=== PATIENT | female | born 1990 | race Caucasian/White ===

== ENCOUNTER 2020-02-09 21:25 | Emergency (ER) | payer MEDICAID, SELFPAY ==
[2020-02-09 21:31] VITALS: BP 137/85; PULSE 114; RESP 18; TEMP 36.8
--- NOTE | 2020-02-09 21:48 | W.ED.GENAD ---
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 Return to ED sooner if any worsening or concerns. Increase oral fluids. Please take Tylenol or Ibuprofen with food every 4-6 hours as needed for pain and swelling. Follow-up with women's wellness return if bleeding more than 1 pad an hour, increased dizziness or lightheadedness or any concerns. Practice pelvic rest until follow-up with LOCK TENDER CHIEF OPERATOR. You were placed on a follow-up list for care management for women's wellness referral to be seen in 3 to 5 days. Referrals: Simone FRANKLIN,Tami [NURSE PRACTITIONER] - 5 days () Medical Decision Making 29-year-old female presents with abnormal vaginal bleeding x12 days. Patient states that her normal menstrual period started 2 weeks late and then began bleeding vaginally which has been longer and heavier than normal. She was seen 3 days ago at [facility] diagnosed with UTI prescribed cephalexin 500 mg twice a day. Patient states that she has been in contact with women's wellness but is waiting for medical records to transfer over before they will give her an appointment. CBC and CMP ordered, she does have leukocytosis with a WBC count of 12, upon review of her previous lab work this does seem to be her baseline. Urine shows no leukocytes, no nitrites 5-10 WBCs rare epithelial cells and is going to be sent for a culture which is pending at this time. Patient's urine test is negative. We will put in a referral for women's wellness discuss strict return instructions with patient, verbalized understanding. Ultrasound is not available to abdomen pelvis ultrasound. This time I feel patient is stable to be discharged home with close follow-up with women's wellness and/or PCP, placed on care management list to establish PCP and to aid in referral within 3 to 5 days. Differential diagnosis includes miscarriage, abnormal vaginal bleeding, ectopic , pyelonephritis, UTI, HPI General Mode of arrival: ambulatory. Date/Time Provider Initiated Documentation: 02/09/20 21:30. Limitations to Documentation: no limitations. Information obtained by: patient. HPI Narrative: 29-year-old female presents with a chief complaint of abnormal vaginal bleeding. Patient states that she has been vaginally bleeding x12 days. She does endorse passing clots and today has been less than 1 pad an hour. She was seen at [facility] today and told that she had a UTI, she states that her last normal menstrual period was approximately 2 weeks late. She does have a history of tubal ligation. She is 2 para 2. She denies dysuria, it is associated with lower back pain and lower pelvic pain. No fever. 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 HEENT: Denies trauma, headaches, blurry vision, nasal discharge, sore throat, trouble swallowing. Chest: Denies chest pain, palpitations, irregular rhythm, hypertension. Respiratory: Denies Shortness of breath, cough, hemoptysis. GI: Denies nausea, vomiting, diarrhea, constipation. Positive suprapubic pelvic pain, bilateral lower back pain. : Denies dysuria, hematuria, flank pain, rectal bleeding. Positive vaginal bleeding. Neuro: Denies dizziness, blurry vision, weakness, syncope, headache or facial numbness. Hematologic: Denies easy bruising, intolerance to heat or cold, hair loss. [facility] Social History Smoking/Tobacco Use Status: Current every day Tobacco Type: cigarettes Alcohol Intake: current Alcohol Intake frequency: holidays/special occasions only Drug use: Never Substance use type: does not use Do you feel safe at home: Yes Do you feel safe in your relationship?: Yes Exam Narrative Exam Narrative: Constitutional: Alert and oriented x3. Appears stated age. Normal body habitus. Head: Normocephalic, no trauma. Eyes: Pupils PERRLA, Red reflex noted, EOM's intact. Eyelids symmetrical without lesions, discharge, or swelling. ENT: Bilateral TM's WNL, External ear normal to inspection, no mastoid TTP, swelling, or erythema, Nasal turbinates WNL, no nasal discharge. Normal dentition, Posterior pharynx WNL, no exudate. Chest: RRR, Normal S1, S2, distal pulses intact. Resp: Lungs clear to auscultation bilaterally, no wheezes, rales, or rhonchi. Abdomen: Bilateral suprapubic lower abdominal pain. Soft, nondistended normal active bowel sounds all 4 quadrants. Musculoskeletal: Normal gait, 5/5 strength to all four extremities. Skin: No suspicious rashes or lesions. Capillary refill less than 2 sec. Neurologic: Cranial nerves II-XII intact. Alert and oriented x 3. DTR's intact. Hematologic/Lymphatic: No ecchymosis, no lymphadenopathy. Course Vital Signs Vital signs: Vital Signs Temperature 36.8 C 02/09/20 21:31 Pulse 114 H 02/09/20 21:31 Respiratory Rate 18 02/09/20 21:31 Blood Pressure 137/85 02/09/20 21:31 Temperature 36.8 C 02/09/20 21:31 Temperature Source Temporal Artery Scan 02/09/20 21:31 Pulse 114 H 02/09/20 21:31 Respiratory Rate 18 02/09/20 21:31 Respiratory Effort Non-Labored 02/09/20 21:31 Blood Pressure 137/85 02/09/20 21:31 Blood Pressure Position Sitting 02/09/20 21:31 Pain Level 2 02/09/20 21:31
[2020-02-09 21:52] LABS: Bilirubin Small (Negative); Blood Large (Negative); Clarity Cloudy (Clear); Glucose Negative (Negative); Ketones Negative (Negative); Leukocyte Esterase Negative (Negative); Nitrite Negative (Negative); Specific Gravity >= 1.030 (1.005-1.025); pH 5.5 (5-8)
[2020-02-09 22:06] LABS: Abs Immature Grans 0.06 k/cumm (0.0-0.09); Absolute Eosinophil Count 0.35 k/cumm (0.0-0.7); Absolute Lymphocyte Count 3.87 k/cumm (1.2-3.4); Absolute Neutrophil Count 7.28 k/cumm (1.2-6.7); Basophils % 0.2; Eosinophils % 2.8; HCT 38.7 % (36.0-46.0); HGB 13.9 g/dL (12.0-15.5); Immature Grans % 0.5 %; Mean Corp. HGB Concentration 35.9 g/dL (32.0-36.0); Mean Corpuscular Hemoglobin 30.5 pg (27.0-33.0); Mean Corpuscular Volume 84.9 fL (80-95); Mean Platelet Volume 10.4 fL (8.0-11.0); Monocytes % 7.1; Neutrophils % 58.4; Platelet Count 280 x1000/uL (130-400); RBC 4.56 m/cumm (4.00-5.20); RBC Distribution Width 12.9 % (11.7-14.6); White Blood Cell Count 12.47 k/cumm (4.4-10.8)
[2020-02-09 22:21] LABS: ALT 42 U/L (14-59); AST 25 U/L (15-37); Alkaline Phosphatase 80 U/L (46-116); Anion Gap 7.1 mmol/L (3-11); BUN 14 mg/dL (7-18); Bilirubin, Total 0.3 mg/dL (0.2-1.0); CO2 27.9 mmol/L (21.0-32.0); CREATININE 0.83 mg/dL (0.55-1.02); Calcium 8.6 mg/dL (8.5-10.1); Chloride 103 mmol/L (98-107); Potassium 3.8 mmol/L (3.5-5.1); Sodium 138 mmol/L (136-145); Total Protein 7.6 g/dL (6.4-8.2)
[2020-02-09 22:22] LABS: Absolute Basophil Count 0.02 k/cumm (0.0-0.2); Absolute Monocyte Count 0.89 k/cumm (0.11-0.7)
[2020-02-09 22:26] LABS: Glucose 116 mg/dL (74-106)
[2020-02-09 22:29] LABS: Bacteria Negative HPF (Negative); Crystals Negative HPF (Negative); Epithelial Cells Rare HPF (Negative); Other Cells Negative (Negative); RBC >50 HPF (0-2)
[2020-02-09 22:30] LABS: C & S Indicated? Yes; Casts Negative LPF (Negative); Mucus Moderate (Negative)
[2020-02-09 23:00] VITALS: BP 115/62; PULSE 89; RESP 16; O2SAT 95
--- NOTE | 2020-02-09 23:26 | NUR.NOTE ---
REFERRED TO CARE MANAGEMENT TO ESTABLISH PCP. AND [facility] WITH[facility] THREE TO FIVE DAYS. Nursing Note:
== END 2020-02-09 23:07 | disposition home or self-care (01) ==
PROVIDERS: Nurse Practitioner Family; Emergency Provider Registered Nurse Emergency
DX: N92.0 Excessive and frequent menstruation with regular cycle (principal); M54.5 Low back pain; R10.2 Pelvic and perineal pain
CPT/HCPCS: 36415; 51701; 80053; 81025; 99283; 81003; 81015; 85025; 87086

== ENCOUNTER 2020-02-16 01:50 | Outpatient (CLI) | payer MEDICAID, SELFPAY ==
--- NOTE | 2020-02-16 13:00 | DI.US_ITS ---
EXAM: US PELVIS TRANSVAGINAL CLINICAL HISTORY: dysfunctional uterine bleeding, r10.2,pelvic pain, n93.8 TECHNIQUE: Ultrasound performed using standard protocol. COMPARISON: No exams were available for comparison FINDINGS: Pelvic ultrasound was performed transabdominally and transvaginally. Please see the accompanying zee a sheet for measurements of the pelvic structures. The uterus is normal in appearance with unremarkable myometrial echogenicity, endometrial stripe is 8 millimeters in thickness and appears homogeneous. The ovaries have a normal follicular appearance. Limited scanning of the kidneys is unremarkable. No free fluid identified in the cul-de-sac. IMPRESSION: Normal pelvic ultrasound DATA REPOSITORY:
== END 2020-02-16 02:10 ==
PROVIDERS: Visit Provider Obstetrics & Gynecology
DX: R10.2 Pelvic and perineal pain (principal); N93.8 Other specified abnormal uterine and vaginal bleeding
CPT/HCPCS: 76830; 76856

== ENCOUNTER 2020-12-04 14:37 | Outpatient (REF) | payer MEDICAID, SELFPAY ==
[2020-12-05 15:15] LABS: COVID-19 RT-PCR UVMMC Result Negative (Negative)
== END 2020-12-04 14:38 | disposition home or self-care (01) ==
LOC: NCHCN 14:37
PROVIDERS: PCP Internal Medicine; Visit Provider Internal Medicine
DX: Z20.822 Contact with and (suspected) exposure to COVID-19 (principal)
CPT/HCPCS: U0003

== ENCOUNTER 2022-03-08 08:23 | Emergency (ER) | payer MEDICAID, SELFPAY ==
[2022-03-08 08:27] VITALS: BP 119/77; PULSE 75; RESP 16; TEMP 36.6; O2SAT 98
--- OUTSIDE RECORDS SUMMARY | 2022-03-08 08:34 | XMS_ITS | Encounter Summary ---
:1990 Author Organization [facility] Address [address] [place] [address] Care Team Providers Name Role Phone Unavailable Primary Care Provider Unavailable Encounter Details Date Type Department Care Team Description 07/15/2011 Hospital Encounter [facility] - Mary Marin NP [id number] [place] [phone] (Wo rk) Social History Tobacco Use Types Packs/Day Years Used Date Never Assessed Sex Assigned at Date Recorded Not on file documented as of this encounter Discharge Disposition Disposition Code Departure Means Destination Home or Self Care documented in this encounter Plan of Treatment Not on filedocumented as of this encounter Visit Diagnoses Not on filedocumented in this encounter
--- OUTSIDE RECORDS SUMMARY | 2022-03-08 08:34 | XMS_ITS | Encounter Summary ---
:1990 Author Organization [facility] Address [address] [place] [address] Care Team Providers Name Role Phone Unknown, Provider Primary Care Provider Encounter Details Date Type Department Care Team Description 12/04/2020 Lab Requisition [facility] Outr Resulting Lab, Pathology & Laboratory Provider [facility] [address] [place] [address] Social History Tobacco Use Types Packs/Day Years Used Date Never Assessed Sex Assigned at Date Recorded Not on file documented as of this encounter Plan of Treatment Not on filedocumented as of this encounter Procedures Procedure Name Priority Date/Time Associated Diagnosis Comme nts COVID-19 TEST [facility] Today 12/04/2020 9:00 EDT LAB PCR COVID-19 TESTING Routine 12/04/2020 9:00 EDT Resu lts for this procedure are i n the results section. documented in this encounter Results COVID-19 TEST [facility] PCR (12/04/2020 9:00 EDT) Specimen Swab - Entire nasopharynx (body structur e) Performing Organization Address City/State/ZIP Code Phon e Number [facility] [address] [place] [address] SERVICES COVID-19 TESTING (12/04/2020 9:00 EDT) COVID-19 rt-PCR Negative Negative [facility] Result Comment: [facility] This test has not been FDA c leared or approved. This test has been authorized by FDA under an EUA for use by authorized laboratories. This test has been authorized only for detection of nucleic acid fro SERVICES m 2019-nCoV, not for any oth er viruses or pathogens. This test is only authorized for the duration of the declaration that circumstances exist justifying the authorization of emergency use of in vitro d iagnostic tests for detectio n and/or diagnosis of 2019-nCoV under section 564(b)(1) of Act, 21 U.S.C ?? 360bbb-3(b) (1), unless the authorization is terminated or revoked sooner. Negative results do not prec lude 2019-nCoV infection and should not be used as the sole basis for treatment or other patient management decisions. Negative results must be combined with clinical observa tions, patient history, and epidemiological informatio n. This test was developed and its performance characteristics determined by [facility]. It has not been cleared or approved by the US Food and Drug Administration. FDA does not require this test to go through premarket FDA review. This t est is used for clinical purposes. It should not be regarded as investigational or for research. This laboratory is certified under the Clinical Laboratory Improvement Amendm ents (CLIA) as qualified to perform high complexity clinical laboratory testing. This test is based on the CD C COVID-19 Emergency Use Authorization (EUA) assay, with minor modification as defined by the FDA Performed on the [employer] RT-PCR System. Performing Lab [facility] Lab [facility] SERVICES Specimen Swab Performing Organization Address City/State/ZIP Code Phon e Number [facility] [address] [place] [address] SERVICES documented in this encounter Visit Diagnoses Not on filedocumented in this encounter Care Teams Grinder Hardboard Relationship Specialty Start Date End Date Unknown, Provider, PCP - General 08/25/13 documented as of this encounter
--- OUTSIDE RECORDS SUMMARY | 2022-03-08 08:34 | XMS_ITS | Encounter Summary ---
:1990 Author Organization [facility] Address [address] [place] [address] Care Team Providers Name Role Phone Saniya Hadring SAFETY SECURITY OFFICER Primary Care Provider [phone] Encounter Details Date Type Department Care Team Description 08/24/2013 Hospital Encounter [facility]- Shanti Unknown, Provider, [facility] [address] [place] [address] [place] [address] (Work) [phone] Social History Tobacco Use Types Packs/Day Years Used Date Never Assessed Sex Assigned at Date Recorded Not on file documented as of this encounter Discharge Disposition Disposition Code Departure Means Destination Home or Self Alf documented in this encounter Plan of Treatment Not on filedocumented as of this encounter Visit Diagnoses Not on filedocumented in this encounter Care Teams Tea Tree Farmer Relationship Specialty Start Date End Date Saniya Harding NP PCP - General 07/18/11 08/24/[address] [place] [phone] documented as of this encounter
--- OUTSIDE RECORDS SUMMARY | 2022-03-08 08:34 | XMS_ITS | Encounter Summary ---
:1990 Author Organization [facility] Address [address] [place] [address] Care Team Providers Name Role Phone Unknown, Provider Primary Care Provider Encounter Details Date Type Department Care Team Description 07/15/2011 Results Only [facility] Saniya Salguero, Laboratory Services - RN SPINE [address] [phone] (Wo rk) Social History Tobacco Use Types Packs/Day Years Used Date Never Assessed Sex Assigned at Date Recorded Not on file documented as of this encounter Plan of Treatment Not on filedocumented as of this encounter Procedures Procedure Name Priority Date/Time Associated Diagnosis Comme [facility] SURGICAL PATHOLOGY Routine 07/15/2011 0:00 EDT Re sults for this procedure are i n the results section. documented in this encounter Results SURGICAL PATHOLOGY (07/15/2011 0:00 EDT) Pathology SURGICAL PATHOLOGY REPORT CARYN JEROME Report: Reports generated via electronic interface contain [place] ginal data; LAB however they are lacking the format of the original re port. Caution should be taken when reading/interpreting unfo rmatted reports. Name: ? ANALISA GOLDSTEIN ? Accession #: ? [id number] ? : ? 1990 (Age: 20) ??F ? Collect Date: ? 07/15/2011 ? Location: ? [facility] ? Receive Date: ? 011 ? Provider: SANIYA SALGUERO RN SPINE Copy to: ? Final Pathologic Diagnosis: ? Debris sloughed from nipple, left: - Portion of orthohyperkeratosis with entrapped fungal organisms and rare bacterial colonies. ??See ??microscopic and comment. Comment: ? The biopsy is largely composed of orthokeratin. ??Despite deeper levels, the epidermis is not represented, precluding further diagn osis. ??Within the orthokeratin are numerous yeast forms, many of which h ave a suggestion of Pityrosporum organisms. ??Also present are rare bacter ial colonies. ??The significant of these organisms is uncertain and could represent colonization. There is tissue reaction to the organisms. ??However, if there is clinical concern for an infectious process, submission of additional tissue, including some for culture, may be use ful. ??The case was discussed with Saniya Salguero, N.P. ??(Dr. Leone)/[facility] ?? Microscopic Description: ? Sections consist of a portion of orthohyp erkeratosis. ??Despite deeper levels, no epidermis is iden tified. ??Within the keratin layer are numerous yeast forms, some of which are morphologically suggestive of Pityrosporum. ??Well developed hyphal forms are not identifie d. ??Rare scattered bacterial colonies are also present. (Dr. Leone)/[facility] Document reviewed and electronically signed by: FRANKIE LEONE MD Report ??Date: 07/22/2011 16:16 By the signature above, the attending physician certif ies that he/she has personally conducted a gross and/or microscopic examin ation of the described specimens and rendered or confirmed the above diagnosi s. Specimen(s) Received: ? L nipple Clinical History: ? Crusted tissue slough ed from L nipple; nipple irritation/debris; clinical diagnosis code: ??611.79 Gross Description: ? Received in formalin labelled [place], Analisa and debris from L nipple is a 0.7 x 0.2 x 0.2 cm irre gular, rasheed-white, mottled, granular tissue fragment. The specimen is submitted intact in a single cassette . ??(Roxann Garcia)/[facility] End of Report Specimen Performing Organization Address City/State/ZIP Code Phon e Number [facility] [address] [place] [address] SERVICES [facility] [address] [place] [address] documented in this encounter Visit Diagnoses Not on filedocumented in this encounter Care Teams Acid Retort Operator Relationship Specialty Start Date End Date Unknown, Provider, PCP - General 07/17/11 07/17/11 documented as of this encounter
--- NOTE | 2022-03-08 08:48 | W.ED.GENAD ---
Discharge Plan Disposition Patient Disposition: HOME Condition: Improving Discharge Details Clinical Impression: Pyelonephritis Primary Care Provider: None,None ED Provider: Lloyd eMade Home Meds and New Rx's Prescriptions: New ondansetron 4 mg tablet,disintegrating 4 mg PO Q6H PRN (Reason: nausea and vomiting) Qty: 10 0RF cephalexin 500 mg tablet 500 mg PO QID 7 Days Qty: 28 0RF No Action acetaminophen [Tylenol Extra Strength] 500 mg tablet 500 mg PO Q6H PRN ibuprofen 200 mg capsule 200 mg PO Q6H PRN Discharge Instructions Instructions: Urinary Tract Infection in Women (ED) Additional Instructions: If you develop any significant worsening of symptoms, uncontrollable vomiting, persistent fever, or feeling worse return immediately to the emergency department for reassessment. Otherwise take your antibiotics and antinausea medication as prescribed and if not improving follow-up with primary care provider next week Stand Alone Forms: Work Release Referrals: Primary Care Provider [Outside] Discharge Data Discharge Date/Time-TO BE ENTERED AT DEPARTURE: 03/08/22 10:49 Medical Decision Making Patient presenting to the emergency department for chief complaint as UTI and headache. She reports that she started having burning with urination and frequency approximately 1 week ago. Then 3 days ago she started having headache, nausea, and last night began vomiting. She does state associated fever. Patient denies any respiratory or HEENT symptoms and states that she has performed home testing for COVID which was negative and denies any known contact to other COVID-positive individuals. Physical exam does show right CVA tenderness otherwise unremarkable exam. Deferred vaginal exam due to patient denying any vaginal symptoms or potential for STI. Chief working diagnosis was pyelonephritis so we will perform labs, give fluids, and check urinalysis along with . Review of CBC shows slight leukocytosis and elevated neutrophils, CMP is nondiagnostic, UA does show elevated specific gravity, protein, ketones, blood, positive for nitrites and leukocyte Estrace with both RBCs and WBCs. Specimen does appear contaminated so will obtain urine specimen for urine culture. Patient is also not . Given laboratory results I do feel that patient has pyelonephritis and will order ceftriaxone with plan to discharge patient on Zofran and Keflex pending urine culture. Patient is tolerating p.o. intake. after discussion of diagnosis and plan of care patient has no further needs, questions, or concerns and states clear understanding to return to the emergency department for any worsening symptoms. This documentation was generated using [employer] dictation system, please disregard any oddities of phrase or misspellings. HPI General Mode of arrival: ambulatory. Date/Time Provider Initiated Documentation: 03/08/22 08:32. Limitations to Documentation: no limitations. Information obtained by: patient and RN notes reviewed. History of Present Illness 31 year old F presents to the emergency department with the chief complaint of Burning with urination fever, malaise, headache, described as moderate, with intensity rated at 7. Quality is described as aching, and is localized to the head. Patient reports no radiation. Patient started experiencing this week(s) (1) and it has been constant. No relieving factors improve symptom(s), No exacerbating factors reported . Patient notes fever/chills, headaches, malaise and nausea/vomiting. Patient did receive the following treatments prior to arrival, none Related Data Home Medications Medication Instructions Recorded Confirmed acetaminophen 500 mg tablet 500 mg PO Q6H PRN 02/11/20 03/08/22 (Tylenol Extra Strength) ibuprofen 200 mg capsule 200 mg PO Q6H PRN 02/11/20 03/08/22 cephalexin 500 mg tablet 500 mg PO QID 7 days #28 tabs 03/08/22 ondansetron 4 mg disintegrating 4 mg PO Q6H PRN nausea and 03/08/22 tablet vomiting #10 tabs Previous Rx's Medication Instructions Recorded cephalexin 500 mg tablet 500 mg PO QID 7 days #28 tabs 03/08/22 ondansetron 4 mg disintegrating 4 mg PO Q6H PRN nausea and 03/08/22 tablet vomiting #10 tabs Allergies Allergy/AdvReac Type Severity Reaction Status Date / Time latex Allergy local area Unverified 03/08/22 08:31 swelling General Stated Complaint: FlankPain ROSA: 4 Review of Systems Constitutional Constitutional: Denies body ache(s), Reports chills, Reports fever(s), Reports malaise and Denies weakness ENT Ears, Nose, Mouth, and Throat: Denies nasal congestion and Denies sore throat Cardiovascular Cardiovascular: Denies chest pain Respiratory Respiratory: Reports system reviewed and no additional complaints, except as documented Gastrointestinal Gastrointestinal: Denies abdominal pain, Denies nausea and Denies vomiting Genitourinary Genitourinary: Reports as per HPI, Reports hematuria, Reports dysuria, Denies pelvic pain, Reports flank pain, Reports urinary hesitancy, Reports urinary urgency, Denies vaginal discharge, Denies vaginal odor and Denies vaginal pruritus Musculoskeletal Musculoskeletal: Reports back pain Integumentary/Breasts Skin/Breast: Denies new lesions and Denies rash Neurologic Neurologic: Denies confusion and Denies weakness Psychiatric Psychiatric: Denies confusion PFSH All Active Problems (Updated 03/08/22 @ 10:24 by Lloyd Meade NP) Pyelonephritis (Acute) Pelvic pain (Acute) DUB (dysfunctional uterine bleeding) (Acute) Pelvic and perineal pain (Acute) Social History Smoking/Tobacco Use Status: Current every day Tobacco Type: cigarettes Quit status: not considering quitting Smoking risk assessment performed?: Yes Alcohol Intake: current Alcohol Intake frequency: holidays/special occasions only Drug use: Never Substance use type: does not use Counseling given: No Do you feel safe at home: Yes Do you feel safe in your relationship?: Yes Exam Const General: cooperative and no acute distress Orientation: alert, awake and oriented x3 Resp Effort & Inspection: normal respiratory effort and able to speak in complete sentences Auscultation: clear to auscultation bilaterally Cardio Rate: regular rate Rhythm: regular rhythm Heart Sounds: S1 normal and S2 normal GI Palpation: nontender General: CVA tenderness on the left Back/Spine/Pelvis Back: no CVA tenderness Neuro General: patient alert, patient awake, patient oriented x3, gait normal, tone normal, moves all extremities and no focal motor deficits Extrem General: capillary refill normal Course Vital Signs Vital signs: Vital Signs Temperature 36.6 C 03/08/22 08:27 Pulse 75 03/08/22 08:27 Respiratory Rate 16 03/08/22 08:27 Blood Pressure 119/77 03/08/22 08:27 Pulse Oximetry 98 03/08/22 08:27 Temperature 36.6 C 03/08/22 08:27 Temperature Source Temporal Artery Scan 03/08/22 08:27 Pulse 75 03/08/22 08:27 Respiratory Rate 16 03/08/22 08:27 Respiratory Effort Non-Labored 03/08/22 08:30 Blood Pressure 119/77 03/08/22 08:27 Blood Pressure Position Sitting 03/08/22 08:27 Pulse Oximetry 98 03/08/22 08:27 Oxygen Delivery Method Room Air 03/08/22 08:27 Oxygen Flow Rate 0 03/08/22 08:27 Pain Level 7 03/08/22 08:32 Lab/Test Results Lab/Test Results: POC- Test(urine) Negative
[2022-03-08 08:56] LABS: Bilirubin Negative (Negative); Blood Moderate (Negative); Clarity Cloudy (Clear); Glucose Negative (Negative); Ketones 15 mg/dL (Negative); Leukocyte Esterase Small (Negative); Nitrite Positive (Negative); Specific Gravity >= 1.030 (1.005-1.025)
[2022-03-08] MEDS: Ondansetron 4 MG/2 ML VIAL IVP (09:01)
[2022-03-08] MEDS: Normal Saline 1,000 ML 1000 ML IV (09:01)
[2022-03-08] MEDS: Ketorolac 30 MG/ML VIAL IVP (09:01)
[2022-03-08 09:02] LABS: Bacteria Many HPF (Negative); C & S Indicated? No/Sq. Contamination; Casts 0-2 Hyaline LPF (Negative); Crystals Negative HPF (Negative); Epithelial Cells Many HPF (Negative); Mucus Negative (Negative)
[2022-03-08 09:08] LABS: Abs Immature Grans 0.06 10^3/uL (0.0-0.06); Absolute Basophil Count 0.06 10^3/uL (0.0-0.2); Absolute Eosinophil Count 0.12 10^3/uL (0.0-0.7); Absolute Lymphocyte Count 2.41 10^3/uL (1.2-3.4); Basophils % 0.5; HCT 44.3 % (36.0-46.0); HGB 15.6 g/dL (11.2-15.7); Immature Grans % 0.5; Lymphocytes % 20.3; MCH 29.9 pg (27.0-33.0); MCHC 35.2 % (32.0-36.0); MCV 85 fL (80-95); MPV 9.9 fL (8.0-11.0); Monocytes % 6.7; Platelet Count 290 10^3/uL (130-400); RBC 5.21 10^6/uL (3.93-5.22); RDW 11.8 % (11.7-14.6); RDW-SD 36.3 fL; WBC 11.86 10^3/uL (4.4-10.8)
[2022-03-08 09:09] LABS: Absolute Monocyte Count 0.79 10^3/uL (0.1-0.8); Absolute Neutrophil Count 8.42 10^3/uL (1.2-6.7)
[2022-03-08 09:23] LABS: ALT 22 U/L (14-59); AST 13 U/L (15-37); Albumin 3.8 g/dL (3.4-5.0); Alkaline Phosphatase 85 U/L (46-116); Anion Gap 10.4 mmol/L (3-11); BUN 12 mg/dL (7-18); Bilirubin, Total 0.6 mg/dL (0.2-1.0); CO2 28.6 mmol/L (21.0-32.0); CREATININE 0.7 mg/dL (0.55-1.02); Calcium 9.1 mg/dL (8.5-10.1); Chloride 101 mmol/L (98-107); Glucose 104 mg/dL (74-106); Potassium 3.3 mmol/L (3.5-5.1); Sodium 140 mmol/L (136-145); Total Protein 8.2 g/dL (6.4-8.2)
[2022-03-08] MEDS: Potassium Chloride 20 MEQ TABCR PO (09:55)
== END 2022-03-08 10:49 | disposition home or self-care (01) ==
PROVIDERS: Emergency Provider Nurse Practitioner Family
DX: N12 Tubulo-interstitial nephritis, not specified as acute or chronic (principal); F17.210 Nicotine dependence, cigarettes, uncomplicated; Z32.02 Encounter for pregnancy test, result negative
CPT/HCPCS: 36415; 80053; 81025; 87077; 96361; 96365; 96375; 99284; 81003; 81015; 85025; 87086; 87186; J0696; J1885; J2405

== ENCOUNTER 2022-08-11 06:43 | Day surgery (SDC) | payer MEDICAID, SELFPAY ==
[2022-08-11] VITALS (13 sets, daily range): BP systolic 86–138; BP diastolic 45–80; PULSE 71–100; RESP 16–22; TEMP 36.4–36.9; O2SAT 93–99; BMI 31.4
--- NOTE | 2022-08-11 07:00 | DI.CT_ITS ---
Exam(s) CT ABDOMEN PELVIS W EXAM: CT ABDOMEN PELVIS W CLINICAL HISTORY: abdominal pain, nausea, vomiting. TECHNIQUE: Imaging Protocol: Axial computed tomography images with coronal and sagittal reformatted images were created and reviewed CONTRAST MATERIAL: Intravenous: Omnipaque 350 Contrast volume:100 ml Oral: no COMPARISON: CT ABD PELVIS WITH CONTRAST from 09/05/2015 FINDINGS: ABDOMEN: Lung Bases: Mild dependent changes. Liver: Normal density. No measurable mass. Gallbladder and biliary tract: No radiodense calculus or dilation. Pancreas: Normal density, no abnormal calcifications or inflammatory process. Spleen: Normal. Kidneys: Normal size, contour and axis. No radiodense stones or obstructive uropathy. No masses seen. Adrenal glands: No masses seen. Abdominal Aorta: Abdominal portion non-dilated. PELVIS: Bladder: No gross wall thickening. No calculi.No focal mass. Bowel: No obstruction or bowel wall thickening. Dilated appendix with surrounding stranding in the fa t. No Perforation or abscess. Bones: Within normal limits for age. Reproductive organs: Within normal limits. Lymph nodes: Unremarkable. Impression: Findings consistent with acute appendicitis. RADIATION DOSE DELIVERED: 1,082.27mGy.cm Total DLP DATA REPOSITORY: All CT scans at this facility are submitted to the National Radiology Data Registry (NRDR) Dose Index Registry (DIR) with the [employer] (ACR). RADIATION OPTIMIZATION: All CT scans at this facility use at least one of these dose optimization te chniques: automated exposure control; mA and/or kV adjustment per patient size (includes targeted exa ms where dose is matched to clinical indication); or iterative reconstruction.
--- NOTE | 2022-08-11 07:09 | ED.GENADUL_ITS ---
Discharge Plan Discharge Details Chief Complaint: Abd Prob Primary Care Provider: Unknown,Unknown ED Provider: Partha Mendoza Home Meds and New Rx's Prescriptions: No Action acetaminophen [Tylenol Extra Strength] 500 mg tablet 500 mg PO Q6H PRN ibuprofen 200 mg capsule 200 mg PO Q6H PRN ondansetron 4 mg tablet,disintegrating 4 mg PO Q6H PRN (Reason: nausea and vomiting) Qty: 10 0RF Medical Decision Making 31-year-old female presents with acute abdominal pain that began this morning mid abdominal in nature, associate with nausea and vomiting. Normal bowel movement yesterday. Surgical history significant for sections. Hemodynamically stable afebrile no active vomiting abdomen soft nontender noted however appears moderately uncomfortable. Consider biliary colic versus cholecystitis versus less likely appendicitis versus enterocolitis muscles consider UTI. Will obtain urine test, basic labs, fluid antiemetics analgesia, CT abdomen pelvis. Disposition pending results. 8: 13 patient resting comfortably awaiting labs and imaging results. Sign Out Yes HPI General Date/Time Provider Initiated Documentation: 08/11/22 06:54 . HPI Narrative: 31-year-old female presents with severe cute onset mid abdominal discomfort beginning this morning associate with nausea and vomiting, normal bowel movement yesterday. History of prior sections. Related Data Home Medications Medication Instructions Recorded Confirmed acetaminophen 500 mg tablet 500 mg PO Q6H PRN 02/11/20 03/08/22 (Tylenol Extra Strength) ibuprofen 200 mg capsule 200 mg PO Q6H PRN 02/11/20 03/08/22 ondansetron 4 mg disintegrating 4 mg PO Q6H PRN nausea and 03/08/22 tablet vomiting #10 tabs Previous Rx's Medication Instructions Recorded ondansetron 4 mg disintegrating 4 mg PO Q6H PRN nausea and 03/08/22 tablet vomiting #10 tabs Allergies Allergy/AdvReac Type Severity Reaction Status Date / Time latex Allergy local area Unverified 03/08/22 08:31 swelling General Stated Complaint: Abd Prob ROSA: 3 Review of Systems Narrative: Review of Systems Constitutional: negative Eyes: negative ENT: negative Cardiovascular: negative Respiratory: negative Gastrointestinal: Abdominal pain nausea vomiting : negative Musculoskeletal: negative Skin: negative Neurologic: negative Psych: negative PFSH All Active Problems (Updated 04/08/22 @ 00:08 by PRETTY BOYLE) Pelvic pain (Acute) DUB (dysfunctional uterine bleeding) (Acute) Pelvic and perineal pain (Acute) Social History Smoking/Tobacco Use Status: Current every day Tobacco Type: cigarettes Quit status: not considering quitting Smoking risk assessment performed?: Yes Alcohol Intake: current Alcohol Intake frequency: holidays/special occasions only Drug use: Never Substance use type: does not use Counseling given: No Do you feel safe at home: Yes Do you feel safe in your relationship?: Yes Exam Narrative Exam Narrative: Physical Examination General: alert, awake, cooperative, appears moderately uncomfortable HEENT: normocephalic, atraumatic; PERRL, EOM intact, conjunctiva normal; no nasal discharge; slight drying of oral mucosa Neck: supple, trachea midline; full ROM Chest: normal to inspection Respiratory: normal respiratory effort, speaking in full sentences, clear to auscultation, no wheezing, rales or rhonchi Cardiac: regular rate, regular rhythm, S1S2 intact, no murmurs rubs or gallops GI: abdomen soft, non-tender, non-distended; no palpable mass or hepatosplenomegaly Skin: no lesions, rashes or trauma appreciated Neuro: AAOx3, normal speech, moving all extremities Psych: Appropriate mood and affect Course Vital Signs Vital signs: Vital Signs Temperature 36.6 C 08/11/22 06:47 Pulse 84 08/11/22 06:47 Respiratory Rate 08/11/22 06:47 Blood Pressure 132/80 08/11/22 06:47 Pulse Oximetry 98 08/11/22 06:47 Temperature 36.6 C 08/11/22 06:47 Temperature Source Temporal Artery Scan 08/11/22 06:47 Pulse 84 08/11/22 06:47 Respiratory Rate 08/11/22 06:47 Blood Pressure 132/80 08/11/22 06:47 Blood Pressure Position Sitting 08/11/22 06:47 Pulse Oximetry 98 08/11/22 06:47 Oxygen Delivery Method Room Air 08/11/22 06:47 Oxygen Flow Rate 0 08/11/22 06:47 Pain Level 10 08/11/22 06:47
[2022-08-11] MEDS: MORPHine 4 MG/ML SYR 2 MG IVP (07:14)
[2022-08-11] MEDS: Normal Saline 1,000 ML 1000 ML IV ×2 (07:17→09:08)
[2022-08-11] MEDS: Ondansetron 4 MG/2 ML VIAL IVP (07:18)
[2022-08-11] MEDS: Omnipaque 350 MG/ML 100 ML BTL IJ ×2 (07:55→08:05)
[2022-08-11] MEDS: Normal Saline - Diluent 50 ML VIAL IJ (08:05)
[2022-08-11 08:36] LABS: Bilirubin Negative (Negative); Blood Negative (Negative); Clarity Sl Cloudy (Clear); Glucose Negative (Negative); Ketones Negative (Negative); Leukocyte Esterase Negative (Negative); Nitrite Negative (Negative); Specific Gravity 1.015 (1.005-1.025); Urobilinogen 0.2 EU/dL (Up TO 0.2)
--- NOTE | 2022-08-11 08:36 | DI.VRAD_ITS ---
Addendum created by Mohini Molina MD on 08/11/2022 8:44:20 AM EST: THIS REPORT CONTAINS FINDINGS THAT MAY BE CRITICAL TO PATIENT CARE. The findings were verbally communicated via telephone conference with Dr Simms at 8:44 AM EST on 08/11/2022. The findings were acknowledged and understood. Initial report created on 08/11/2022 8:36:10 AM EST: PROCEDURE INFORMATION: Exam: CT Abdomen And Pelvis With Contrast Exam date and time: 08/11/2022 7:55 AM Age: 31 years old Clinical indication: Other: Abdominal pain, nausea, vomiting TECHNIQUE: Imaging protocol: Computed tomography of the abdomen and pelvis with contrast. Contrast material: OMNIPAQUE 350; Contrast volume: 100 ml; Contrast route: INTRAVENOUS (IV); COMPARISON: CT ABD PELVIS WITH CONTRAST 09/05/2015 11:49 PM FINDINGS: Lungs: Mild opacities in the lower lobes may represent mild atelectasis or pneumonia. Liver: Normal. No mass. Gallbladder and bile ducts: Normal. No calcified stones. No ductal dilation. Pancreas: Normal. No ductal dilation. Spleen: Normal. No splenomegaly. Adrenal glands: Normal. No mass. Kidneys and ureters: Normal. No hydronephrosis. Stomach and bowel: Unremarkable. No obstruction. No mucosal thickening. Appendix: The appendix measures 9 mm in width and there are mild periappendiceal inflammatory changes. Series 5, image 50- 53. This could represent early acute appendicitis in the appropriate clinical setting. Intraperitoneal space: Minimal free fluid in the pelvis Vasculature: Unremarkable. No abdominal aortic aneurysm. Lymph nodes: Unremarkable. No enlarged lymph nodes. Urinary bladder: Unremarkable as visualized. Reproductive: Unremarkable as visualized. Bones/joints: Unremarkable. No acute fracture. Soft tissues: Unremarkable. IMPRESSION: The appendix measures 9 mm in width and there are mild periappendiceal inflammatory changes. Series 5, image 50- 53. This could represent early acute appendicitis in the appropriate clinical setting. Dictated and Authenticated by: Mohini Molina MD. Ordering:SELVIN Chavis MD
--- NOTE | 2022-08-11 08:51 | ED.PROG_ITS ---
Date of service: 08/11/22 Time of Service: 08:51 Medical Decision Making Received signout on the patient from Dr. Devan Danielle. She has acute appendicitis by CT and repeat examination. Case discussed with Dr. Grace on- call for surgery, parenteral antibiotics administered, patient to be admitted for definitive care. Sign Out No Sign Out Sign Out Data: Sign Out Comment: abd pain, nausea vomiting; pending labs and imaging Last updated by Partha Mendoza MD at 08/11/22 08:16 Discharge Plan Disposition Patient Disposition: Admit to [facility] Condition: Improving Discharge Details Clinical Impression: Acute appendicitis Attending Provider: Isaac Grace Primary Care Provider: None,None ED Provider: Golden Simms
[2022-08-11] MEDS: PIPERACILLIN/TAZO 4.5 GM in Normal Saline 100 ML IVPB (09:10)
[2022-08-11] MEDS: MORPHine 4 MG/ML SYR IVP (09:10)
[2022-08-11 09:32] LABS: Abs Immature Grans 0.16 10^3/uL (0.0-0.06); Basophils % 0.4; Eosinophils % 0.3; HCT 45.1 % (36.0-46.0); HGB 15.3 g/dL (11.2-15.7); Immature Grans % 0.6; Lymphocytes % 5.4; MCHC 33.9 % (32.0-36.0); MCV 88 fL (80-95); MPV 10.1 fL (8.0-11.0); Monocytes % 3.9; Neutrophils % 89.4; Platelet Count 257 10^3/uL (130-400); RDW 12.3 % (11.7-14.6); RDW-SD 40.4 fL
[2022-08-11 09:37] LABS: Absolute Eosinophil Count 0.08 10^3/uL (0.0-0.7); Absolute Lymphocyte Count 1.41 10^3/uL (1.2-3.4); Absolute Monocyte Count 1.02 10^3/uL (0.1-0.8); Absolute Neutrophil Count 23.37 10^3/uL (1.2-6.7)
[2022-08-11 09:38] LABS: WBC 26.14 10^3/uL (4.4-10.8)
[2022-08-11 09:50] LABS: ALT 26 U/L (14-59); AST 20 U/L (15-37); Albumin 4.1 g/dL (3.4-5.0); Alkaline Phosphatase 74 U/L (46-116); Anion Gap 5.3 mmol/L (3-11); BUN 13 mg/dL (7-18); Bilirubin, Total 0.6 mg/dL (0.2-1.0); CO2 28.7 mmol/L (21.0-32.0); CREATININE 0.6 mg/dL (0.55-1.02); Calcium 8.8 mg/dL (8.5-10.1); Chloride 103 mmol/L (98-107); Estimated GFR 123.76 (mL/min/1.73m2); Glucose 103 mg/dL (74-106); Lipase 54 U/L (73-393); Potassium 4.2 mmol/L (3.5-5.1); Sodium 137 mmol/L (136-145); Total Protein 7.7 g/dL (6.4-8.2)
[2022-08-11 10:10] LABS: Diff Comment Agrees w/ Instrument; RBC Morphology Normal
--- NOTE | 2022-08-11 10:27 | ANES.PREOP_ITS ---
General Info Date of Service Date Performed: 08/11/22 Height: 5 ft 5 in Weight: 85.729 kg Body Mass Index (BMI): 31.4 Surgical Procedure: Operation Date: 08/11/22 09:40 Proposed Procedure Side Surgeon p Appendectomy Laparoscopic Not Applicable Isaac Grace MD Meds Allergies and Home Medications Allergies Allergy/AdvReac Type Severity Reaction Status Date / Time latex Allergy local area Unverified 03/08/22 08:31 swelling Home Medication Medication Instructions Recorded acetaminophen 500 mg tablet 500 mg PO Q6H PRN 02/11/20 (Tylenol Extra Strength) ibuprofen 200 mg capsule 200 mg PO Q6H PRN 02/11/20 ondansetron 4 mg disintegrating 4 mg PO Q6H PRN nausea and 03/08/22 tablet vomiting #10 tabs Current Visit Medications: Current Medications Generic Name Dose Route Start Last Admin Trade Name Freq PRN Reason Stop Dose Admin Iohexol 100 ml 08/11/22 08:00 08/11/22 08:05 Omnipaque 350 Mg/Ml 100 Ml Btl IJ 09/10/22 23:59 100 ml DIRECTED KRYSTAL Administration Sodium Chloride 50 ml 08/11/22 08:15 08/11/22 08:05 Normal Saline - Diluent 50 Ml Vial IJ 50 ml .FOR DI USE KRYSTAL Administration PFSH Active Problems Active Problems: Problem Status Onset Code Acute appendicitis K35.80 Pelvic pain R10.2 DUB (dysfunctional uterine bleeding) N93.8 Pelvic and perineal pain R10.2 Tobacco Smoking/Tobacco Use Status: Current every day Tobacco Type: cigarettes Smoking cigarettes per day: 10 Passive smoking exposure: Yes Alcohol Alcohol Intake: current Alcohol intake frequency: holidays/special occasions only Substance Use Substance use: Never Substance use type: does not use Vital Signs and Lab Results Vital Signs Most Recent Vital Signs in EMR: Most Recent Vital Signs Temp Pulse Resp BP Pulse Ox 36.6 C 84 22 132/80 98 08/11/22 06:47 08/11/22 06:47 08/11/22 06:47 08/11/22 06:47 08/11/22 06:47 Point of Care Results Point of Care Results: POC- Test(urine) Negative 08/11/22 07:22 Lab Results Result Diagrams: 08/11/22 09:25 08/11/22 09:25 Blood Type / Crossmatch: No Data to Display Complete Blood Count: 2 White Blood Count 26.14 10^3/uL (4.4-10.8) H* 08/11/22 09:25 Red Blood Count 5.10 10^6/uL (3.93-5.22) 08/11/22 09:25 Hemoglobin 15.3 g/dL (11.2-15.7) 08/11/22 09:25 Hematocrit 45.1 % (36.0-46.0) 08/11/22 09:25 Platelet Count 257 10^3/uL (130-400) 08/11/22 09:25 Complete Metabolic Panel: Sodium 137 mmol/L (136-145) 08/11/22 09:25 Potassium 4.2 mmol/L (3.5-5.1) 08/11/22 09:25 Chloride 103 mmol/L (98-107) 08/11/22 09:25 Carbon Dioxide 28.7 mmol/L (21.0-32.0) 08/11/22 09:25 BUN 13 mg/dL (7-18) 08/11/22 09:25 Creatinine 0.6 mg/dL (0.55-1.02) 08/11/22 09:25 Est GFR (CKD-EPI 2020) 123.76 (mL/min/1.73m2) 08/11/22 09:25 Calcium 8.8 mg/dL (8.5-10.1) 08/11/22 09:25 Albumin 4.1 g/dL (3.4-5.0) 08/11/22 09:25 Glucose 103 mg/dL (74-106) 08/11/22 09:25 Liver Function Panel: Alanine Aminotransferase (ALT/SGPT) 26 U/L (14-59) 08/11/22 09: 25 Aspartate Amino Transf (AST/SGOT) 20 U/L (15-37) 08/11/22 09:25 Coagulation Panel: No Data to Display Cardiac Panel: No Data to Display Arterial Blood Gas: No Data to Display Venous Blood Gas: No Data to Display Pancreas Panel: Lipase 54 U/L (73-393) 08/11/22 09:25 Thyroid Panel: No Data to Display Infectious Disease: No Data to Display Blood Cultures: No Data to Display Toxicology Panel: No Data to Display Panel: No Data to Display Anesthesia Assessment and Plan Anesthesia History Personal History: No History of Anesthesia Complications Family History: No Family History of Anesthesia Complications Exercise Tolerance Exercise Tolerance: Metabolic Equivalents>4 Pertinent Negatives Pertinent Negatives: No Symptoms of GERD, No Major Cardiovascular Symptoms or Complaints and No Major Pulmonary Symptoms or Complaints Cardiac & Pulmonary Exam Cardiac Exam: Normal S1/S2 Heart Sounds Pulmonary Exam: Clear Bilateral Breath Sounds Implantable Cardiac Device Does patient have a Pacemaker or an ICD?: No Airway Exam Known Difficult Airway: No Mallampati Class: 2 Mouth Opening: Normal (> 3cm) Thyromental Distance: Greater than 3 cm Neck Range of Motion: Full ROM Neck Circumference: Normal Teeth Condition: Normal Dentition ASA Classification ASA Score: ASA 2 Emergency Case?: Yes NPO Status NPO Status: NPO Clears >2 hours, Solids >8 hours Status Status: Negative HCG Anesthesia Plan Resuscitation Status: Full Code Anesthesia Technique: General Anesthesia Airway Planned: Endotracheal Tube Monitors Used: Standard Monitors
[2022-08-11] MEDS: Normal Saline 1,000 ML 30 ML IV (11:00)
--- NOTE | 2022-08-11 11:18 | HPE_ITS ---
Date of service: 08/11/22 Time of Service: 11:05 Assessment and Plan Assessment and plan (1) Acute appendicitis: Status: Acute Assessment and plan: 31-year-old woman with acute appendicitis. She is hemodynamically stable. I discussed the pathophysiology of acute appendicitis with her and the various treatment recommendations. In particular we discussed definitive surgical intervention and the roles and reasons for it. There is no clinical or radiographic evidence to suggest perforation. And as long as there is no evidence of perforation at the time of operation, she can be discharged home afterwards. Overall plan: IV antibiotics, 5000 units subcutaneous heparin for DVT prophylaxis, to the OR for laparoscopic appendectomy History of Present Illness Narrative: The patient is a 31-year-old woman who was in her usual state of health until late last night when she developed severe abdominal pain in the right lower quadrant. She has never had pain like this before. It slowly got worse and and she presented to the emergency department because it was so severe. She denies any recent sick contacts. She has otherwise been using a regular diet and has not eaten anything unusual. Her bowel habits are otherwise normal. She denies fevers. She has not had any unintentional weight loss, night sweats or chills. She was worked up in the emergency department with a CT scan and preliminary read from radiology was that of acute appendicitis. (Reported to me by ER physician) On lab work she has a white count of 25. Medical history: None Surgical history: C-sections twice Family history: Noncontributory Social history: Noncontributory Medications: None Allergies: Latex (swelling) PFSH All Active Problems (Updated 08/11/22 @ 08:53 by Golden Simms MD) Acute appendicitis (Acute) Pelvic pain (Acute) DUB (dysfunctional uterine bleeding) (Acute) Pelvic and perineal pain (Acute) Social History Smoking/Tobacco Use Status: Current every day Tobacco Type: cigarettes Quit status: not considering quitting Smoking risk assessment performed?: Yes Alcohol Intake: current Alcohol Intake frequency: holidays/special occasions only Drug use: Never Substance use type: does not use Counseling given: No Do you feel safe at home: Yes Do you feel safe in your relationship?: Yes Meds Allergies and Home Medications Allergies Allergy/AdvReac Type Severity Reaction Status Date / Time latex Allergy local area Unverified 03/08/22 08:31 swelling Home Medications Medication Instructions Recorded Confirmed Type acetaminophen 500 mg tablet 500 mg PO Q6H PRN 02/11/20 03/08/22 History (Tylenol Extra Strength) ibuprofen 200 mg capsule 200 mg PO Q6H PRN 02/11/20 03/08/22 History ondansetron 4 mg disintegrating 4 mg PO Q6H PRN nausea and 03/08/22 Rx tablet vomiting #10 tabs Exam Narrative Exam Narrative: General: Nontoxic, interactive but uncomfortable Neuro: Alert and oriented x3 Psych: Appropriate mood and affect, good insight and understanding into her condition Abdomen: Soft, nondistended, focal tap tenderness in the right lower quadrant over McBurney's point. She has a Rovsing sign present. Results Labs Result diagrams: 08/11/22 09:25 08/11/22 09:25 Labs: Laboratory Results - last 24 hr 08/11/22 08/11/22 08/11/22 08:20 09:25 09:25 WBC 26.14 H* RBC 5.10 Hgb 15.3 Hct 45.1 MCV 88 MCH 30.0 MCHC 33.9 RDW 12.3 Plt Count 257 MPV 10.1 Immature Gran % 0.6 Neutrophils % 89.4 Lymphocytes % 5.4 Monocytes % 3.9 Eosinophils % 0.3 Basophils % 0.4 Nucleated RBC % 0.0 Absolute Neutrophils 23.37 H Absolute Lymphocytes 1.41 Absolute Monocytes 1.02 H Absolute Eosinophils 0.08 Absolute Basophils 0.10 RBC Morphology Normal Sodium 137 Potassium 4.2 Chloride 103 Carbon Dioxide 28.7 Anion Gap 5.3 BUN 13 Creatinine 0.6 Est GFR (CKD-EPI 2020) 123.76 Glucose 103 Calcium 8.8 Total Bilirubin 0.6 AST 20 ALT 26 Alkaline Phosphatase 74 Total Protein 7.7 Albumin 4.1 Lipase 54 Urine Color Yellow Urine Clarity Sl Cloudy Urine pH 8.0 Ur Specific [place] 1.015 Urine Protein Negative Urine Ketones Negative Urine Blood Negative Urine Nitrite Negative Urine Bilirubin Negative Urine Urobilinogen 0.2 Ur Leukocyte Esterase Negative Urine Glucose Negative Last Vital Signs Temp 97.7 F 08/11/22 10:40 Pulse 84 08/11/22 10:40 Resp 20 08/11/22 10:40 BP 99/69 L 11/27/22 10:40 Pulse Ox 99 08/11/22 10:40 PAWSS Have you Been Recently Intoxicated or Drunk Within the Last 30 days?: No Have you Ever Experienced Previous Episodes of Alcohol Withdrawal?: No Have you ever Experienced Withdrawal Seizures?: No Have you ever Experienced Delirium Tremens(DT)s?: No Have you ever undergone Alcohol Rehabilitation Treatment (i.e, inpt ot outpatient treatment programs)?: No Have you ever Experienced Blackouts?: No Have you ever Combined Alcohol with other Downers within the last 90 days?: No Have you ever Combined Alcohol with any other Substance of Abuse during the last 90 days?: No Positive Blood Alcohol level on Presentation? [PCS.BAL]: No Evidence of Increased Autonomic Activity (i.e. HR>120, tremor, sweating, agitation, nausea)?: No Result: 0
[2022-08-11] MEDS: Heparin 5,000 UNITS/ML VIAL 5000 UNITS (11:49)
[2022-08-11] MEDS: Bupivacaine 0.25% Pres-Free 30 ML VIAL (12:00)
--- NOTE | 2022-08-11 12:13 | APP_PTH ---
PATIENT: Analisa Dumas LOC: [facility] U#:[id number] AGE/SX: 31/F ROOM: RE08/11/[address]: Isaac Grace : 1990 BED: DIS: 08/11/2022 SPEC #: [id number] RECD: 08/12/22 12:12 STATUS: AUBREY REQ #: [id number] PASTORA: 08/11/22 12:[address]: Isaac Grace DEPT: Surgical Specimen RECD BY: Meron Knapp ENTERED: 08/12/22 12:15 SP TYPE: Appendix OTHR DR: None Tissues: 1 - APPENDIX NOT INCIDENTAL Procedures: GROSS AND MICRO LEVEL 3 Comments: [id number]
--- NOTE | 2022-08-11 12:50 | ROE_ITS ---
Date of service: 08/11/22 Time of Service: 11:30 Operative Note Operative Note Refer to Anesthesia Record Procedure Description: Procedures performed: 1. Laparoscopic lysis of adhesions 2. Laparoscopic appendectomy Preoperative diagnosis: Acute appendicitis Postop diagnosis: Intra-abdominal adhesions, acute appendicitis Surgeon: Consuelo Grace Anesthesia: General Anesthesia provider: Layla Indication for procedure: 31 yo woman with acute onset RLQ pain and CT findings consistent with appendicitis. Findings:? Unexpected dense adhesions to the anterior abdominal wall all the way to the level of the umbilicus. Extensive lysis of adhesions was necessary to clear up space to remove her appendix. An acutely inflamed but non- perforated appendix was found and removed in usual fasion. Estimated blood loss: Scant/Minimal Complications: No complications Drains: None Procedure details: The patient gave written consent.? In agreement with the risks, indications and benefits of the procedure.? She was taken to the operating room and laid supine with arms outstretched.? Anesthesia was administered which she tolerated very well.? Antibiotics have been given.? She had received DVT prophylaxis.? We performed a timeout and when we were all in agreement I began the case. We prepped and draped the abdomen in sterile fashion.? I used a Veress needle at the umbilicus but was unable to gain appropriate pressures and thus moved 2cm superior and insufflated without any difficulty.? A 5 mm port was placed just above the umbilicus without any difficulty but dense adhesions of omentum prohibited any reasonable view. So I placed a LUQ 5mm port and at that time was able to see all of the dense omental adhesions lower in the abdomen. I couldn't visualize the RLQ or pelvis and even the umbilical region was obscured from view because of these. I used a Ligasure and divided the adhesions and completely cleared off her anterior wall allowing and creating for adequate exposure to the RLQ where an a cutely inflamed appendix was easily found. I placed a LLQ 5mm port and upsize the umbilical port to a 12 mm. There was no evidence of perforation although a scant amount of reactive fluid was seen around the base of the cecum and appendix. Using the Ligasure I divided the mesoappendix. Next I divided the appendix base with the stapler ensure a healthy cuff of cecum was also taken as part of the staple line. I removed the appendix from the abdominal cavity and passed the specimen off the back table. I rechecked for hemostasis and it was excellent. The 12 mm port site was closed through the fascia with 0-Vicryl. The remaining ports were removed.? Skin was closed with absorbable sutures and dressings were placed. The patient tolerated the procedure well.? She was extubated and taken to the PACU in HD stable condition.
--- NOTE | 2022-08-11 12:53 | W.ANESPOSTOP ---
Postoperative Evaluation Date, Time and Location Date Performed: 08/11/22 Time Performed: 12:53 Patient Location: PACU Vital Signs Most Recent Imported Vital Signs: Most Recent Vital Signs Temp Pulse Resp BP Pulse Ox 36.6 C 71 17 91/49 L 93 08/11/22 12:45 08/11/22 12:45 08/11/22 12:45 08/11/22 12:45 08/11/22 12:45 Pain Score Most Recent Pain Score: Most Recent Pain Score Pain Level 0 08/11/22 12:45 Assessment Mental Status: Arousable with meaningful communication Airway and Respiratory Function: Patent airway with normal (patient baseline) respiratory exam Cardiovascular Function: Hemodynamically Stable Hydration Status: Adequately Hydrated Nausea & Vomiting: No Nausea or Vomiting Pain: Pain is tolerable per patient Peripheral Nerve Block: Patient did not receive a nerve block
[2022-08-11] MEDS: Ibuprofen 200 MG TAB PO (13:40)
[2022-08-11] MEDS: Acetaminophen 500 MG TAB PO (13:40)
== END 2022-08-11 16:13 | disposition home or self-care (01) ==
LOC: ER 09:11 → DSU 11:19
PROVIDERS: Emergency Medicine; Emergency Provider Emergency Medicine; Visit Provider Student in an Organized Health Care Education/Training Program
PROC: 0DTJ4ZZ Resection of Appendix, Percutaneous Endoscopic Approach (ICD-10-PCS; CPT 44970; principal; 2022-08-11 09:40)
DX: K35.80 Unspecified acute appendicitis (principal); K66.0 Peritoneal adhesions (postprocedural) (postinfection); N93.8 Other specified abnormal uterine and vaginal bleeding; R10.2 Pelvic and perineal pain; F17.210 Nicotine dependence, cigarettes, uncomplicated
CPT/HCPCS: 44970; 36415; 80053; 81025; 83690; 96361; 96365; 96375; 96376; 99285; 74177; 81003; 85025; 88304; J1100; J1644; J1885; J2270; J2405; J2543; J2704; J3490

== ENCOUNTER 2024-05-22 14:05 | Emergency (ER) | payer MEDICAID, SELFPAY ==
[2024-05-22 14:12] VITALS: BP 108/67; PULSE 106; RESP 16; TEMP 36.1; O2SAT 99
[2024-05-22 14:23] LABS: Bilirubin Small (Negative); Blood Small (Negative); Clarity Cloudy (Clear); Glucose Negative (Negative); Ketones Trace mg/dL (Negative); Leukocyte Esterase Moderate (Negative); Nitrite Positive (Negative); Specific Gravity >= 1.030 (1.005-1.025)
[2024-05-22 14:31] LABS: Bacteria Many HPF (Negative); C & S Indicated? No/Sq. Contamination; Casts Negative LPF (Negative); Crystals Negative HPF (Negative); Epithelial Cells Moderate HPF (Negative); Mucus Negative (Negative); WBC >50 HPF (0-5)
--- NOTE | 2024-05-22 15:30 | DI.CT_ITS ---
Exam(s) CT LUMBAR SPINE RECONS CT ABDOMEN PELVIS WO/W EXAM: CT ABDOMEN PELVIS WO/W and CT lumbar spine recons CLINICAL HISTORY: renal wo > CT w/ - ?pyelo TECHNIQUE: Imaging Protocol: Axial computed tomography images with coronal and sagittal reformatted images were created and reviewed. CONTRAST MATERIAL: Intravenous: Omnipaque 350 Contrast volume:100 mL Oral: No COMPARISON: CT CT ABDOMEN PELVIS W from 08/11/[address] LUMBAR SPINE RECONS from 05/22/2024 FINDINGS: ABDOMEN: Lung Bases: Normal where visualized. Liver: Normal density. No measurable mass. Portal, Superior Mesenteric, and Splenic Veins: Unremarkable. Gallbladder and Biliary Tract: No radiodense calculus or dilation. Pancreas: Normal density, no abnormal calcifications or inflammatory process. Spleen: Normal. Adrenals: No masses seen. Kidneys: There is diffuse heterogeneous enhancement of the right kidney. Mild stranding is seen in t he surrounding soft tissues. The right kidney measures 12.2 cm long compared to the left kidney whic h measures 10.7 cm long. The findings are most suggestive of right pyelonephritis. No abscess is id entified. No radiodense stones or obstructive uropathy. No masses seen. Abdominal Aorta: Abdominal portion non-dilated. Bowel: No obstruction or bowel wall thickening. No evidence of appendicitis. Peritoneal Cavity: No ascites, collection or mesenteric inflammatory response. No free air. Lymph Nodes: Within normal limits. Bones: Within normal limits for the patient's age. 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 No s pondylolisthesis. Soft Tissues: Unremarkable. PELVIS: Bladder: Symmetric distention, no gross wall thickening. Reproductive Organs: There is a 5 x 4.3 cm right ovarian cyst. Three productive organs are otherwise unremarkable. Lymph Nodes: Within normal limits. Bones: Within normal limits for the patient's age. CT scan of the lumbar spine recons: Unilateral right L5 spondylolysis. No spondylolisthesis. No acu te fracture or subluxation. The bones are normally mineralized. No large focal disc herniation or s ignificant central spinal canal stenosis is seen. IMPRESSION: 1. Findings consistent with right pyelonephritis. No abscess is identified. 2. No evidence of nephrolithiasis or obstructive uropathy. 3. 5 x 4.3 cm right ovarian cyst. This may be physiologic. A follow-up pelvic ultrasound is request ed. 4. No acute fracture or subluxation is seen in the lumbar spine. Unexpected findings RADIATION DOSE DELIVERED: 900.24mGy.cm Total DLP 900.24mGy.cm Total DLP DATA REPOSITORY: All CT scans at this facility are submitted to the National Radiology Data Registry (NRDR) Dose Index Registry (DIR) with the [employer] (A[employer]). RADIATION OPTIMIZATION: All CT scans at this facility use at least one of these dose optimization te chniques: automated exposure control; mA and/or kV adjustment per patient size (includes targeted exa ms where dose is matched to clinical indication); or iterative reconstruction.
[2024-05-22 15:35] VITALS: BP 136/71; PULSE 62; RESP 20; TEMP 37.2; O2SAT 100
--- NOTE | 2024-05-22 15:41 | W.ED.GENAD ---
Discharge Plan Disposition Patient Disposition: Home Condition: Stable Discharge Details Clinical Impression: Pyelonephritis Primary Care Provider: Unknown,Unknown ED Provider: Pravin Meza Home Meds and New Rx's Prescriptions: New cefpodoxime 200 mg tablet 200 mg PO BID 10 Days Qty: 20 0RF Rx Instructions: must administer with a meal/food metronidazole 500 mg tablet 500 mg PO BID 7 Days Qty: 14 0RF metronidazole 0.75 % gel 1 applic topical QHS 5 Days Qty: 45 0RF Continued acetaminophen [Tylenol Extra Strength] 500 mg tablet 500 mg PO Q6H PRN ibuprofen 200 mg capsule 200 mg PO Q6H PRN Discharge Instructions Instructions: High Potassium Diet, Cefpodoxime, Urinary Tract Infection, Adult ED, Ovarian Cyst ED Additional Instructions: You were seen in the emergency department for your right flank pain this is likely a kidney infection that started as a urinary tract infection, there is evidence of this infection seen on your CT scan. There is no evidence of any bowel problems, you had a very high white blood cell count but your lactate and procalcitonin lab values are negative not indicating severe sepsis. We loaded you on IV antibiotics and I have sent further antibiotics to the [facility] in [place], please start these tomorrow as directed. Please continue to take regular dose of Tylenol and ibuprofen for pain, stay well-hydrated. Incidentally of mildly low potassium which has been present in the past, I have attached information on eating a high potassium diet. Incidentally there was a right ovarian cyst which is not uncommon for women but needs to be followed with an outpatient ultrasound, I have placed you on the list to have an outpatient ultrasound performed at earliest convenience please call the number to have this done Friday or Friday. It is important to have this ultrasound done to rule out any kind of abscess pathology though I do not suspect it at this time. I have attached a work note to give you through Friday, so that you can better attend this ultrasound. Please return to the emergency department for failure to improve despite treatment, high fevers despite Tylenol and ibuprofen use, inability to tolerate p.o. intake, severe nausea, fast heart rate, shaking or rigors, urinary retention or inability to urinate. Stand Alone Forms: Work Release Discharge Data Discharge Date/Time-TO BE ENTERED AT DEPARTURE: 05/22/24 18:55 HPI General Date/Time Provider Initiated Documentation: 05/22/24 14:10. HPI Narrative: 33 year-old female presents to ED today by POV/ambulating with a chief complaint of dysuria, flank pain, low back pain traveling down R leg, mild nausea with onset last week. Quality described as initially burning with urination that resolved, has been having urinary frequency, having chills now and generalized abdominal pain with mild nausea, also has concurrent radicular type pain from the right lumbar back traveling down the right leg, no radiation to current fever, tachycardia, chest pain, shortness of breath, severe abdominal pain, bowel changes, dark urine. Severity is described as severe. Palliating factors include intermittent subtherapeutic doses of ibuprofen, no Tylenol use. Provoking factors include nothing specific. Events leading up to the incident/Associated Symptoms: Patient denies . Patient not anticoagulated. Related Data Home Medications ?Medication ?Instructions ?Recorded ?Confirmed acetaminophen 500 mg tablet 500 mg PO Q6H PRN 02/11/20 05/22/24 (Tylenol Extra Strength) ibuprofen 200 mg capsule 200 mg PO Q6H PRN 02/11/20 05/22/24 cefpodoxime 200 mg tablet 200 mg PO BID pyelonephritis 10 05/22/24 days #20 tabs metronidazole 0.75 % topical gel 1 applic topical QHS 5 days #45 05/23/24 grams metronidazole 500 mg tablet 500 mg PO BID 7 days #14 tabs 05/23/24 Previous Rx's ?Medication ?Instructions ?Recorded cefpodoxime 200 mg tablet 200 mg PO BID pyelonephritis 10 05/22/24 days #20 tabs metronidazole 0.75 % topical gel 1 applic topical QHS 5 days #45 05/23/24 grams metronidazole 500 mg tablet 500 mg PO BID 7 days #14 tabs 05/23/24 Allergies Allergy/AdvReac Type Severity Reaction Status Date / Time latex Allergy local area Unverified 05/22/24 14:12 swelling General Stated Complaint: FlankPain ROSA: 3 Review of Systems All systems reviewed & are unremarkable except as noted in HPI and below Exam Narrative Exam Narrative: GENERAL APPEARANCE: Well-nourished, non-toxic, awake and alert, atraumatic, no acute distress. SKIN: Warm, pink, dry, intact, without rashes/lesions/ulcerations. HEAD: Normocephalic, atraumatic, normal hair distribution for gender/age. EYES: Normal conjunctiva, no exudates on lids/lashes. ENT: Nares patent, no circumoral cyanosis, no facial swelling NECK: Supple, trachea midline, painless cervical ROM. LUNGS/CHEST: Lungs CTA bilaterally-rhonchi/rales/wheezes diffusely, non-labored respirations, normal A/P diameter, symmetrical expansion, no chest wall deformity HEART (CV/PV): Regular rate and rhythm without murmur, no peripheral edema, no JVD. ABDOMEN: Soft, non-distended, no guarding, right CVA tenderness to percussion, no anterior tenderness MSK: Normal ROM, no swelling/deformity to bilateral UEs or LEs, moving all extremities without weakness, no cyanosis, spine midline without tenderness, normal curvature right paraspinal lumbar tenderness and sciatic distribution. NEURO: Mental Status AAOx4 - alert to person, place, time, events No facial droop, no forehead involvement. Motor: No focal weakness - strength 5/5 in bilateral UEs and LEs, proximal and distal, symmetric. Sensory: sensation intact to light touch globally. Gait normal: patient ambulated without ataxia into ED room. PSYCH: euthymic, cooperative, pleasant, appropriate speech Course Vital Signs Vital signs: Vital Signs Temperature 36.1 C L 05/22/24 14:12 Pulse 106 H 05/22/24 14:12 Respiratory Rate 16 05/22/24 14:12 Blood Pressure 108/67 05/22/24 14:12 Pulse Oximetry 99 05/22/24 14:12 Temperature 37.2 C 05/22/24 15:35 Temperature Source Tympanic 05/22/24 15:35 Pulse 62 05/22/24 15:35 Respiratory Rate 20 05/22/24 15:35 Respiratory Effort Normal, Non-Labored 05/22/24 15:35 Respiratory Depth Normal 05/22/24 15:35 Respiratory Pattern Normal 05/22/24 15:35 Blood Pressure 136/71 05/22/24 15:35 Blood Pressure Mean 92 05/22/24 15:35 Blood Pressure Position Sitting 05/22/24 15:35 Pulse Oximetry 100 05/22/24 15:35 Oxygen Delivery Method Room Air 05/22/24 15:35 Oxygen Flow Rate 0 09/07/24 15:35 Pain Level 8 05/22/24 15:35 Lab/Test Results Lab/Test Results: Laboratory Tests Range/Units 05/22/24 14:10 Urine Color (Yellow) Yellow Urine Clarity (Clear) Cloudy Urine pH (5-8) 6.0 Ur Specific [place] (1.005-1.025) >= 1.030 H Urine Protein (Neg-Trace) mg/dL 100 H Urine Ketones (Negative) mg/dL Trace H Urine Blood (Negative) Small H Urine Nitrite (Negative) Positive H Urine Bilirubin (Negative) Small H Urine Urobilinogen (Up to 0.2) mg/dL 2.0 H Ur Leukocyte Esterase (Negative) Moderate H Urine RBC (0-2) HPF 3-5 H Urine WBC (0-5) HPF >50 H Ur Epithelial Cells (Negative) HPF Moderate Urine Crystals (Negative) HPF Negative Urine Bacteria (Negative) HPF Many Urine Casts (Negative) LPF Negative Urine Mucus (Negative) Negative Ur Culture Indicated? No/Sq. Contamination Urine Glucose (Negative) mg/dL Negative POC- Test(urine) Negative Medical Decision Making This dictation utilizes [id number] dictation software and may contain unedited grammatical errors. 33 year-old female presents to ED today by POV/ambulating with a chief complaint of dysuria, flank pain, low back pain traveling down R leg, mild nausea with onset last week. Quality described as initially burning with urination that resolved, has been having urinary frequency, having chills now and generalized abdominal pain with mild nausea, also has concurrent radicular type pain from the right lumbar back traveling down the right leg, no radiation to current fever, tachycardia, chest pain, shortness of breath, severe abdominal pain, bowel changes, dark urine. Severity is described as severe. Palliating factors include intermittent subtherapeutic doses of ibuprofen, no Tylenol use. Provoking factors include nothing specific. Events leading up to the incident/Associated Symptoms: Patient denies . Patients' medical history: Dysfunctional uterine bleeding. Family and social history: Noncontributory. Pertinent exam findings / vital signs include right CVA tenderness to percussion, right paraspinal lumbar back tenderness, no peritoneal signs with anterior abdominal tenderness or palpation, benign cardiopulmonary status. Differential / pathologies of concern include pyelonephritis, PID, sciatica syndrome, diverticulitis, ovarian pathology, vaginitis. Diagnostic studies of: -CBC, CMP, lactate, lipase, procalcitonin, UA, POC urine test, CT abdomen/pelvis with and without contrast, CT lumbar recons. -CBC shows elevated white blood cells at 23.54 with severe elevation of absolute neutrophils, significant elevation of monocytes -Potassium mildly low 3.3 which has been chronic, will stress high potassium diet -Normal renal function -Mildly elevated bilirubin -Mildly elevated alk phos -Lipase within normal limits -Lactate negative, procalcitonin 0.4, not indicative of sepsis -UA shows proteinuria, small hematuria, positive for nitrites and leuk esterase with greater than 50 WBCs consistent with UTI likely source of infection -Dc'd with vaginal pathogen screen pending and NG/GC sent out via dirty urine sample -CT of the abdomen shows right pyelonephritis as well as a large right ovarian cyst, will recommend she follow-up with pelvic ultrasound Interventions of: -Given IV fluids, IV Tylenol, IV Toradol, 2 g IV ceftriaxone and transition to cefpodoxime on outpatient basis. ED Course/Assessment/Plan: 33-year-old female presents with right flank pain and initially had symptoms of UTI last week and has been untreated, having mild nausea but is nontoxic overall, has a significant elevation of white blood cells without laboratory values are presenting sepsis, the patient was comfortable with discharge and transition to p.o. antibiotics after loading with IV antibiotics, I did set the patient up for an outpatient ultrasound to evaluate her right ovarian cyst which could be concerning in the setting of acute significant elevation of monocytes of chronic illness, I stressed strict return criteria for any worsening despite treatment, consistent use of Tylenol and ibuprofen and staying well-hydrated, counseled on high potassium diet. Patients' vaginal path screen + for BV, patient preferred discharge rather than wait for results, sent metronidazole QHS x 5 days to pharmacy, phoned patient- someone had sent her metro PO- stated if she wanted to try topical instead of oral that would be fine, just dont need to do both. Patient verbalized understanding. Findings not consistent with sepsis, pelvic inflammatory disease, diverticulitis, perforated viscus. Disposition of Pyelonephritis. Patient verbalized understanding of the plan and return to ED criteria and engaged in shared decision making. Medical Records Medical records reviewed: Yes I reviewed the patient's medical records. Imaging Data Radiologic Study: Attestation: I personally reviewed and interpreted this imaging study as follows: Imaging: CT Scan Radiologist's impression: EXAM: CT ABDOMEN PELVIS WO/W and CT lumbar spine recons CLINICAL HISTORY: renal wo > CT w/ - ?pyelo TECHNIQUE: Imaging Protocol: Axial computed tomography images with coronal and sagittal reformatted images were created and reviewed. CONTRAST MATERIAL: Intravenous: Omnipaque 350 Contrast volume:100 mL Oral: No COMPARISON: CT CT ABDOMEN PELVIS W from 08/11/[address] LUMBAR SPINE RECONS from 05/22/2024 FINDINGS: ABDOMEN: Lung Bases: Normal where visualized. Liver: Normal density. No measurable mass. Portal, Superior Mesenteric, and Splenic Veins: Unremarkable. Gallbladder and Biliary Tract: No radiodense calculus or dilation. Pancreas: Normal density, no abnormal calcifications or inflammatory process. Spleen: Normal. Adrenals: No masses seen. Kidneys: There is diffuse heterogeneous enhancement of the right kidney. Mild stranding is seen in the surrounding soft tissues. The right kidney measures 12.2 cm long compared to the left kidney which measures 10.7 cm long. The findings are most suggestive of right pyelonephritis. No abscess is identified. No radiodense stones or obstructive uropathy. No masses seen. Abdominal Aorta: Abdominal portion non-dilated. Bowel: No obstruction or bowel wall thickening. No evidence of appendicitis. Peritoneal Cavity: No ascites, collection or mesenteric inflammatory response. No free air. Lymph Nodes: Within normal limits. Bones: Within normal limits for the patient's age. 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 No spondylolisthesis. Soft Tissues: Unremarkable. PELVIS: Bladder: Symmetric distention, no gross wall thickening. Reproductive Organs: There is a 5 x 4.3 cm right ovarian cyst. Three productive organs are otherwise unremarkable. Lymph Nodes: Within normal limits. Bones: Within normal limits for the patient's age. CT scan of the lumbar spine recons: Unilateral right L5 spondylolysis. No spondylolisthesis. No acute fracture or subluxation. The bones are normally mineralized. No large focal disc herniation or significant central spinal canal stenosis is seen. IMPRESSION: 1. Findings consistent with right pyelonephritis. No abscess is identified. 2. No evidence of nephrolithiasis or obstructive uropathy. 3. 5 x 4.3 cm right ovarian cyst. This may be physiologic. A follow-up pelvic ultrasound is requested. 4. No acute fracture or subluxation is seen in the lumbar spine. Unexpected findings Lab Data Lab results reviewed: Yes I reviewed the patient's lab results. Lab results narrative: Vaginal Pathogens pending at time of discharge per patient preferences. Returned + for BV, will send metronidazole Labs: 05/22/24 18:30 Vaginal Vaginitis Screen - Final Laboratory Tests Range/Units 05/22/24 05/22/24 14:10 16:05 WBC (4.4-10.8) 10^3/uL 23.54 H RBC (3.93-5.22) 10^6/uL 4.67 Hgb (11.2-15.7) g/dL 14.5 Hct (36.0-46.0) % 41.1 MCV (80-95) fL 88 MCH (27.0-33.0) pg 31.0 MCHC (32.0-36.0) % 35.3 RDW (11.7-14.6) % 12.1 Plt Count (130-400) 10^3/uL 218 MPV (8.0-11.0) fL 9.8 Immature Gran % % 0.9 Neutrophils % % 80.2 Lymphocytes % % 8.1 Monocytes % % 9.9 Eosinophils % % 0.6 Basophils % % 0.3 Nucleated RBC % (0.0-0.3) % 0.0 Absolute Neutrophils (1.2-6.7) 10^3/uL 18.88 H Absolute Lymphocytes (1.2-3.4) 10^3/uL 1.91 Absolute Monocytes (0.1-0.8) 10^3/uL 2.33 H Absolute Eosinophils (0.0-0.7) 10^3/uL 0.14 Absolute Basophils (0.0-0.2) 10^3/uL 0.07 RBC Morphology Normal VBG Lactate (0.6-1.4) mmol/L 1.4 Sodium (136-145) mmol/L 137 Potassium (3.5-5.1) mmol/L 3.3 L Chloride (98-107) mmol/L 99 Carbon Dioxide (21.0-32.0) mmol/L 29.7 Anion Gap (3-11) mmol/L 8.3 BUN (7-18) mg/dL 9 Creatinine (0.55-1.02) mg/dL 0.8 Est GFR (CKD-EPI 2020) (mL/min/1.73m2) 100.33 Glucose (74-106) mg/dL 87 Calcium (8.5-10.1) mg/dL 9.5 Total Bilirubin (0.2-1.0) mg/dL 1.21 H AST (15-37) U/L 22 ALT (14-59) U/L 47 Alkaline Phosphatase (46-116) U/L 128 H Total Protein (6.4-8.2) g/dL 8.3 H Albumin (3.4-5.0) g/dL 3.5 Lipase (16-77) U/L 15 L Procalcitonin ng/mL 0.4 Urine Color (Yellow) Yellow Urine Clarity (Clear) Cloudy Urine pH (5-8) 6.0 Ur Specific [place] (1.005-1.025) >= 1.030 H Urine Protein (Neg-Trace) mg/dL 100 H Urine Ketones (Negative) mg/dL Trace H Urine Blood (Negative) Small H Urine Nitrite (Negative) Positive H Urine Bilirubin (Negative) Small H Urine Urobilinogen (Up to 0.2) mg/dL 2.0 H Ur Leukocyte Esterase (Negative) Moderate H Urine RBC (0-2) HPF 3-5 H Urine WBC (0-5) HPF >50 H Ur Epithelial Cells (Negative) HPF Moderate Urine Crystals (Negative) HPF Negative Urine Bacteria (Negative) HPF Many Urine Casts (Negative) LPF Negative Urine Mucus (Negative) Negative Ur Culture Indicated? No/Sq. Contamination Urine Glucose (Negative) mg/dL Negative Quality:SDOH Health Related Social Needs: No Data to Display PFSH All Active Problems (Updated 05/22/24 @ 17:46 by KEYSHAWN Fletcher) Pyelonephritis (Acute) Appendicitis (Acute) Pelvic pain (Acute) DUB (dysfunctional uterine bleeding) (Acute) Pelvic and perineal pain (Acute) Surgical History (Updated 08/27/22 @ 11:01 by Caity Mane DO) S/P laparoscopic appendectomy Social History Smoking/Tobacco Use Status: Current every day Tobacco Type: cigarettes Quit status: not considering quitting Smoking risk assessment performed?: Yes Alcohol Intake: current Alcohol Intake frequency: holidays/special occasions only Drug use: Never Substance use type: does not use Counseling given: No Do you feel safe at home: Yes Do you feel safe in your relationship?: Yes
[2024-05-22 16:11] LABS: Lactate 1.4 mmol/L (0.6-1.4)
[2024-05-22 16:13] LABS: Abs Immature Grans 0.22 10^3/uL (0.0-0.06); Absolute Basophil Count 0.07 10^3/uL (0.0-0.2); Absolute Lymphocyte Count 1.91 10^3/uL (1.2-3.4); Basophils % 0.3 %; Eosinophils % 0.6 %; HCT 41.1 % (36.0-46.0); HGB 14.5 g/dL (11.2-15.7); Immature Grans % 0.9 %; Lymphocytes % 8.1 %; MCHC 35.3 % (32.0-36.0); MCV 88 fL (80-95); MPV 9.8 fL (8.0-11.0); Monocytes % 9.9 %; Neutrophils % 80.2 %; Platelet Count 218 10^3/uL (130-400); RBC 4.67 10^6/uL (3.93-5.22); RDW 12.1 % (11.7-14.6); RDW-SD 38.7 fL; WBC 23.54 10^3/uL (4.4-10.8)
[2024-05-22] MEDS: Normal Saline - Diluent 50 ML VIAL IJ (16:14)
[2024-05-22] MEDS: Omnipaque 350 MG/ML 100 ML BTL IJ (16:21)
[2024-05-22 16:26] LABS: Absolute Eosinophil Count 0.14 10^3/uL (0.0-0.7); Absolute Monocyte Count 2.33 10^3/uL (0.1-0.8); Absolute Neutrophil Count 18.88 10^3/uL (1.2-6.7); Diff Comment Diff Reviewed; RBC Morphology Normal
[2024-05-22 16:29] LABS: ALT 47 U/L (14-59); AST 22 U/L (15-37); Albumin 3.5 g/dL (3.4-5.0); Alkaline Phosphatase 128 U/L (46-116); Anion Gap 8.3 mmol/L (3-11); BUN 9 mg/dL (7-18); Bilirubin, Total 1.21 mg/dL (0.2-1.0); CO2 29.7 mmol/L (21.0-32.0); CREATININE 0.8 mg/dL (0.55-1.02); Chloride 99 mmol/L (98-107); Estimated GFR 100.33 (mL/min/1.73m2); Glucose 87 mg/dL (74-106); Lipase 15 U/L (16-77); Potassium 3.3 mmol/L (3.5-5.1); Sodium 137 mmol/L (136-145); Total Protein 8.3 g/dL (6.4-8.2)
[2024-05-22 16:42] LABS: Calcium 9.5 mg/dL (8.5-10.1); Procalcitonin 0.4 ng/mL
[2024-05-22] MEDS: Normal Saline 1,000 ML 1000 ML IV (17:09)
[2024-05-22] MEDS: Ketorolac 15 MG/ML VIAL IVP (17:09)
[2024-05-22] MEDS: ACETAMINOPHEN 1,000 MG/100 ML BTL 400 MG IVPB (17:09)
[2024-05-22] MEDS: cefTRIAXone 2 GM/50 ML BAG IVPB (17:45)
--- NOTE | 2024-05-23 11:21 | W.ED.FU ---
Follow Up Plan: Patient was notified regarding a positive Gardnerella lab, prescribed Flagyl twice daily for the next 7 days Discussed with patient feeling some mild improvement since yesterday and her other symptoms.
[2024-05-24 12:40] LABS: Chlamydia Result Negative (Negative); GC Result Negative (Negative)
== END 2024-05-22 18:55 | disposition home or self-care (01) ==
PROVIDERS: Emergency Medicine; Emergency Provider Physician Assistant
DX: N10 Acute pyelonephritis (principal); B96.89 Other specified bacterial agents as the cause of diseases classified elsewhere; N83.201 Unspecified ovarian cyst, right side
CPT/HCPCS: 36415; 80053; 83690; 84145; 87491; 87591; 96365; 96367; 96375; 99285; 74178; 81003; 81015; 83605; 85025; 87480; 87510; 87660; 99284; J0131; J0696; J1885; J3490

== ENCOUNTER 2024-05-24 09:11 | Outpatient (CLI) | payer MEDICAID, SELFPAY ==
--- NOTE | 2024-05-24 | DI.US_ITS ---
Exam(s) US PELVIS TRANSVAGINAL EXAM: US PELVIS TRANSVAGINAL CLINICAL HISTORY: OVARIAN CYST OF CT NEEDS F/U TECHNIQUE: Transabdominal and transvaginal imaging was performed using standard protocol. COMPARISON: CT CT ABDOMEN PELVIS WO/W from 05/22/[address] LUMBAR SPINE RECONS from 05/22/2024 FINDINGS: UTERUS: Anteverted. cm Endometrium: mm Myometrium: Unremarkable. Cervix: Unremarkable. OVARIES: Right: Cyst or mass: Involuting cyst on the right ovary measuring 2.2 x 1.2 x 1.4 cm. Left: Cyst or mass: None. DOPPLER: Color: Symmetric and uniform flow to both ovaries. No hyperemia. CUL-DE-SAC: Free fluid: Trace fluid around the right adnexa. IMPRESSION: 1. Normal-appearing uterus with endometrial stripe within normal limits. 2. Unremarkable bilateral ovaries. Involuting right ovarian cyst. DATA REPOSITORY:
== END 2024-05-24 09:31 ==
LOC: DI 09:11
PROVIDERS: Visit Provider Physician Assistant
DX: N83.201 Unspecified ovarian cyst, right side (principal)
CPT/HCPCS: 76830; 76856

== ENCOUNTER 2024-05-24 10:52 | Emergency (ER) | payer MEDICAID, SELFPAY ==
[2024-05-24 10:58] VITALS: BP 119/81; PULSE 85; RESP 18; TEMP 36.7; O2SAT 98
--- NOTE | 2024-05-24 11:15 | W.ED.GENAD ---
Discharge Plan Disposition Patient Disposition: Home Discharge Details Clinical Impression: Ovarian cyst, Pyelonephritis Primary Care Provider: Unknown,Unknown ED Provider: Letty Asher Home Meds and New Rx's Prescriptions: No Action acetaminophen [Tylenol Extra Strength] 500 mg tablet 500 mg PO Q6H PRN ibuprofen 200 mg capsule 200 mg PO Q6H PRN cefpodoxime 200 mg tablet 200 mg PO BID 10 Days Qty: 20 0RF Rx Instructions: must administer with a meal/food metronidazole 500 mg tablet 500 mg PO BID 7 Days Qty: 14 0RF metronidazole 0.75 % gel 1 applic topical QHS 5 Days Qty: 45 0RF Discharge Instructions Instructions: Ovarian Cyst ED Additional Instructions: You were seen in the emergency department today for evaluation after having a transvaginal ultrasound performed. In our department you have a full physical examination performed, and I reviewed your imaging and provided you with the radiologist report. Your ovarian cyst appears to be resolving, and it is likely a corpus luteum cyst, and normal cyst associated with ovulation. Of course, this is just 1 moment in time, and if you have sudden change or worsening of your symptoms, you should be reevaluated by your primary care provider or here at the emergency department. You should continue to take all of your antibiotics for your kidney infection as prescribed, even if you start to feel better. Thank you for allowing us to be part of your care. HPI General Mode of arrival: ambulatory. Date/Time Provider Initiated Documentation: 05/24/24 10:59. Limitations to Documentation: no limitations. Information obtained by: patient, family and old records reviewed. HPI Narrative: MDM: This is a 33-year-old female patient presenting for evaluation after imaging studies. Differentials considered in this patient include but are not limited to ongoing pyelonephritis, CT imaging without evidence of perinephric abscess 2 days ago, and she is reassuringly without fever or tachycardia here in the emergency department today to suggest systemic infection such as bacteremia or sepsis. I certainly considered physiologic ovarian cyst, ovarian cancer, symptoms are less concerning for ovarian torsion. At this time the patient does not have any acute complaints that require additional workup and management in the emergency department setting, however, we will await the radiologist result for the transvaginal ultrasound, and discuss next steps in management. The patient was provided with the resources to establish with primary care, but if she requires an [employer] referral I will certainly provide that for her today. She was counseled on completion of her course of antibiosis for her pyelonephritis. ED Course: I independently interpreted the patient's ultrasound and reviewed the radiologist report, which shows an involuting right ovarian cyst with trace right adnexal free fluid but no other abnormalities or concerning findings, most likely representing an involuting corpus luteal cyst. These findings were shared with the patient, who otherwise is without acute complaint or need for emergency evaluation at this point. She does have the ability to establish with primary care already, and feels comfortable doing so and discussing next steps in workup and management for any ongoing adnexal symptoms. At this time, the patient has had a full medical evaluation and is safe for discharge to home. They are hemodynamically stable, ambulatory, and tolerating PO. They are understanding of the follow-up plan and return precautions. They left our facility without incident. Letty Asher MD HPI: In brief, this is a 33-year-old female patient who had a recent visit to our emergency department where she was diagnosed with pyelonephritis, started on antibiotics which she has been taking, as well as a right ovarian cyst. She reports that she was scheduled for an outpatient ultrasound, which she just had completed. She states that she was told to return to the emergency department after this ultrasound that she does not have a primary care provider to discuss the results with. The patient reports that she has largely been in her normal state of health. She continues to have right flank pain that is unchanged and feels similar to when she was initially diagnosed with the pyelonephritis. She has not been taking any additional medications to manage the symptoms, denies acute abdominal pain, nausea or vomiting, changes in bowel or bladder habits. The patient states that she was told that some of the workup was concerning for potential cancerous pathologies, and she is unsure what to do next to obtain adequate follow-up and workup for these concerns. Exam: Gen: Awake and alert, in no apparent distress HEENT: Non-icteric sclera Neck: Supple Lungs: No apparent respiratory distress, normal respiratory effort. CV: Appears well perfused, strong distal pulses Abdomen: Non-distended, soft, nontender MSK: Moves 4 extremities without apparent limitation in ROM. Right CVA tenderness Skin: Visualized skin without rashes, cyanosis. Neuro: Normal Gait, no obvious focal deficits or facial asymmetry. Speaks in full, clear sentences. Psych: Appropriate for situation. Related Data Home Medications ?Medication ?Instructions ?Recorded ?Confirmed acetaminophen 500 mg tablet 500 mg PO Q6H PRN 02/11/20 05/24/24 (Tylenol Extra Strength) ibuprofen 200 mg capsule 200 mg PO Q6H PRN 02/11/20 05/24/24 cefpodoxime 200 mg tablet 200 mg PO BID pyelonephritis 10 05/22/24 05/24/24 days #20 tabs metronidazole 0.75 % topical gel 1 applic topical QHS 5 days #45 05/23/24 05/24/24 grams metronidazole 500 mg tablet 500 mg PO BID 7 days #14 tabs 05/23/24 05/24/24 Previous Rx's ?Medication ?Instructions ?Recorded cefpodoxime 200 mg tablet 200 mg PO BID pyelonephritis 10 05/22/24 days #20 tabs metronidazole 0.75 % topical gel 1 applic topical QHS 5 days #45 05/23/24 grams metronidazole 500 mg tablet 500 mg PO BID 7 days #14 tabs 05/23/24 Allergies Allergy/AdvReac Type Severity Reaction Status Date / Time latex Allergy local area Unverified 05/24/24 11:01 swelling General Stated Complaint: Recheck ROSA: 4 Course Vital Signs Vital signs: Vital Signs Temperature 36.7 C 05/24/24 10:58 Pulse 85 05/24/24 10:58 Respiratory Rate 18 05/24/24 10:58 Blood Pressure 119/81 05/24/24 10:58 Pulse Oximetry 98 05/24/24 10:58 Temperature 36.7 C 05/24/24 10:58 Temperature Source Oral 05/24/24 10:58 Pulse 85 05/24/24 10:58 Respiratory Rate 18 05/24/24 10:58 Respiratory Effort Normal, Non-Labored 05/24/24 11:02 Blood Pressure 119/81 05/24/24 10:58 Blood Pressure Position Sitting 05/24/24 10:58 Pulse Oximetry 98 05/24/24 10:58 Oxygen Delivery Method Room Air 05/24/24 10:58 Oxygen Flow Rate 0 05/24/24 10:58 Medical Decision Making Quality:SDOH Health Related Social Needs: No Data to Display PFSH All Active Problems (Updated 05/24/24 @ 11:37 by Letty Asher MD) Ovarian cyst (Acute) Pyelonephritis (Acute) Appendicitis (Acute) Pelvic pain (Acute) DUB (dysfunctional uterine bleeding) (Acute) Pelvic and perineal pain (Acute) Surgical History (Updated 08/27/22 @ 11:01 by Caity Mane DO) S/P laparoscopic appendectomy Social History Smoking/Tobacco Use Status: Current every day Tobacco Type: cigarettes Quit status: not considering quitting Smoking risk assessment performed?: Yes Alcohol Intake: current Alcohol Intake frequency: holidays/special occasions only Drug use: Never Substance use type: does not use Counseling given: No Do you feel safe at home: Yes Do you feel safe in your relationship?: Yes PAWSS Have you Been Recently Intoxicated or Drunk Within the Last 30 days?: No Have you Ever Experienced Previous Episodes of Alcohol Withdrawal?: No Have you ever Experienced Withdrawal Seizures?: No Have you ever Experienced Delirium Tremens(DT)s?: No Have you ever undergone Alcohol Rehabilitation Treatment (i.e, inpt ot outpatient treatment programs)?: No Have you ever Experienced Blackouts?: No Have you ever Combined Alcohol with other Downers within the last 90 days?: No Have you ever Combined Alcohol with any other Substance of Abuse during the last 90 days?: No Positive Blood Alcohol level on Presentation? [PCS.BAL]: No Evidence of Increased Autonomic Activity (i.e. HR>120, tremor, sweating, agitation, nausea)?: No Result: 0
[2024-05-24 11:40] VITALS: BP 119/81; PULSE 85; RESP 18; TEMP 36.7; O2SAT 98
== END 2024-05-24 11:42 | disposition home or self-care (01) ==
PROVIDERS: Emergency Provider Emergency Medicine
DX: N83.201 Unspecified ovarian cyst, right side (principal); N10 Acute pyelonephritis
CPT/HCPCS: 99281; 99283

== ENCOUNTER 2025-07-09 12:06 | Emergency (ER) | payer MEDICAID, SELFPAY ==
[2025-07-09 12:18] VITALS: BP 109/74; PULSE 79; RESP 16; O2SAT 98
--- NOTE | 2025-07-09 12:33 | ED.GENADUL_ITS ---
Discharge Plan Disposition Patient Disposition: Home Condition: Stable Discharge Details Clinical Impression: Fracture of middle phalanx of finger of right hand Primary Care Provider: Unknown,Unknown ED Provider: Maral Poole Home Meds and New Rx's Prescriptions: No Action acetaminophen [Tylenol Extra Strength] 500 mg tablet 500 mg PO Q6H PRN ibuprofen 200 mg capsule 200 mg PO Q6H PRN Discharge Instructions Instructions: Finger Fracture ED, How to care for a splint Additional Instructions: Please leave a finger splint on except for bathing. It does appear that you have broken the bone in your finger. Please follow-up with orthopedics, you are placed on a care management list they should call you with an appointment. Please take Tylenol or Ibuprofen with food every 4-6 hours as needed for pain and swelling. Referrals: Dat Heredia MD [ [facility] STAFF PHYSICIAN, Orthopaedic Surgical] - 1 week Referral Note: Please call for an appointment Clinical Impression: Fracture of middle phalanx of finger of right hand HPI General Mode of arrival: ambulatory . Date/Time Provider Initiated Documentation: 07/09/25 12:22 . Limitations to Documentation: no limitations . Information obtained by: patient, RN notes reviewed and old records reviewed . HPI Narrative: 34-year-old female presents to the ER with a chief complaint of right ring finger swelling and deformity after a trip and fall yesterday. She states that she tripped over her dogs landing on her hand. She does have swelling contusion noted to her right fourth digit. Bruising extending into the dorsum of her right hand. No wrist pain is able to flex and extend her wrist without difficulty. Related Data Home Medications ?Medication ?Instructions ?Recorded ?Confirmed acetaminophen 500 mg tablet 500 mg PO Q6H PRN 02/11/20 07/09/25 (Tylenol Extra Strength) ibuprofen 200 mg capsule 200 mg PO Q6H PRN 02/11/20 1 Allergies Allergy/AdvReac Type Severity Reaction Status Date / Time latex Allergy local area Verified 07/09/25 12:20 swelling General Stated Complaint: Orthopedic ROSA: 3 Review of Systems Musculoskeletal Musculoskeletal: Reports as per HPI, Reports arthralgias and Reports joint swelling Exam Extrem Right upper extremity: hand Details: abnormal to inspection, tenderness and swelling Location: of the 4th digit Location: involving the entire digit Course Vital Signs Vital signs: Vital Signs Pulse 79 07/09/25 12:18 Respiratory Rate 16 07/09/25 12:18 Blood Pressure 109/74 07/09/25 12:18 Pulse Oximetry 98 07/09/25 12:18 Pulse 79 07/09/25 12:18 Respiratory Rate 16 07/09/25 12:18 Blood Pressure 109/74 07/09/25 12:18 Blood Pressure Position Sitting 07/09/25 12:18 Pulse Oximetry 98 07/09/25 12:18 Oxygen Delivery Method Room Air 07/09/25 12:18 Oxygen Flow Rate 0 07/09/25 12:18 Pain Level 4 07/09/25 12:18 Medical Decision Making 34-year-old female presents to the ER with a chief complaint of right ring finger swelling and deformity after a trip and fall yesterday. She states that she tripped over her dogs landing on her hand. She does have swelling contusion noted to her right fourth digit. Bruising extending into the dorsum of her right hand. No wrist pain is able to flex and extend her wrist without difficulty. X-ray of right hand ordered to rule out fracture versus dislocation. X-rays show a mildly displaced fracture of the middle phalanx of the fourth digit. Will place in a splint and have patient follow-up with orthopedics. This text was generated using [place] [employer] dictation system, please disregard any oddities of phrase or misspellings. PFSH All Active Problems (Updated 07/09/25 @ 13:45 by Maral Poole NP) Fracture of middle phalanx of finger of right hand (Acute) Appendicitis (Acute) Pelvic pain (Acute) DUB (dysfunctional uterine bleeding) (Acute) Pelvic and perineal pain (Acute) Surgical History S/P laparoscopic appendectomy Social History Smoking/Tobacco Use Status: Current every day Tobacco Type: cigarettes Quit status: not considering quitting Smoking risk assessment performed?: Yes Alcohol Intake: current Alcohol Intake frequency: holidays/special occasions only Drug use: Never Substance use type: does not use Counseling given: No Do you feel safe at home: Yes Do you feel safe in your relationship?: Yes
--- NOTE | 2025-07-09 13:05 | DI.RAD_ITS ---
Exam(s) XR HAND RT COMPLETE EXAM: XR HAND RT COMPLETE CLINICAL HISTORY: Right 4th finger injury. TECHNIQUE: 2D digital imaging was performed of the right hand. Three images were obtained. AP, lateral and oblique views were obtained. COMPARISON: No exams were available for comparison FINDINGS: BONES: There is a mildly displaced oblique fracture through the diaphysis of the middle phalanx of the right ring finger. The fracture does not appear to extend into the joint space. No bony destructive lesion is seen. JOINTS: No dislocation present. SOFT TISSUE: There is soft tissue swelling of the 4th finger. IMPRESSION: Mildly displaced oblique fracture through the middle phalanx of the right 4th finger with associated soft tissue swelling. DATA REPOSITORY: RADIATION DOSE DELIVERED:
== END 2025-07-09 13:58 | disposition home or self-care (01) ==
PROVIDERS: Emergency Provider Registered Nurse Emergency
DX: S62.624A Displaced fracture of middle phalanx of right ring finger, initial encounter for closed fracture (principal); W01.198A Fall on same level from slipping, tripping and stumbling with subsequent striking against other object, initial encounter
CPT/HCPCS: 99283 ×2; 29130; 73130

== ENCOUNTER 2025-07-20 10:29 | Outpatient (CLI) | payer MEDICAID, SELFPAY ==
--- NOTE | 2025-07-20 10:09 | DI.RAD_ITS ---
Exam(s) XR HAND RT COMPLETE EXAM: XR HAND RT COMPLETE CLINICAL HISTORY: F/U FRACTURE. TECHNIQUE: 2D digital imaging was performed of the right hand. Three images were obtained. AP, lateral and oblique views were obtained. COMPARISON: CR XR HAND RT COMPLETE from 07/09/2025 FINDINGS: BONES: There does not appear to be significant change in alignment of the mildly displaced fracture of the middle phalanx of the 4th finger. No bony destructive lesion is seen. JOINTS: No dislocation present. SOFT TISSUE: There is soft tissue swelling of the 4th finger. IMPRESSION: Stable alignment of the fracture of the middle phalanx of the 4th finger. DATA REPOSITORY: RADIATION DOSE DELIVERED:
== END 2025-07-20 10:30 | disposition home or self-care (01) ==
LOC: DIORS 10:29
PROVIDERS: Visit Provider Student in an Organized Health Care Education/Training Program
DX: S62.624A Displaced fracture of middle phalanx of right ring finger, initial encounter for closed fracture (principal)
CPT/HCPCS: 73130